=== PATIENT | female | born 1985 | race Caucasian/White ===

== ENCOUNTER → 2017-10-05 | Outpatient (CLI) | payer OTHER | END | disposition home or self-care (01) | LOC: C.PAPS 11:58 | PROVIDERS: ATTEND Physician Assistant | DX: Z12.4 Encounter for screening for malignant neoplasm of cervix (principal) ==

== ENCOUNTER 2019-04-19 07:42 | Inpatient (IN) ==
[2019-04-19] MEDS ORDERED: OXYTOCIN 30 UNITS/500 ML BAG IV PRN (08:06)
--- NOTE | 2019-04-19 08:29 | History & Physical Report ---
Date of Service April 19, 2019 Assessment & Plan (1) Supervision of elderly primigravida: Supervision of Elderly Primigravida -B+, GBS - -Good bulb removed this AM -Pitocin start 1, increase by 2 milliunits/min every 30 min until max 20milliunits/min -Pain Plan epidural -Plan for vaginal delivery History of Present Illness Chief Complaint: IOL Primary Care Provider: ANDREA Foster Patient is a 34 . Dating parameters 41W 2D by LMP TONY 04/10/19. Presenting for IOL after good bulb placement the night prior. has been complicated by hypothyroidism which patient takes levothyroxine for. She has been attending OB appointments appropriately. She notes movement, but denies any contractions, fluid loss, vaginal blood loss. States she feels well. Labs -Blood type B+ -Antibody screen negative -Hg - 12.3 -Hct - 37.1 -Wbc 11.06 -Plt 222 -Rubella immune -VDRL/RPR - negative -Gonorrhea negative -Chlamydia negative -HIV negative -HbSAg negative -GBS negative -Glucose tolerance x 2 passed Allergies Allergy/AdvReac Type Severity Reaction Status Date / Time No Known Allergies Allergy Verified 04/18/19 19:37 Home Medications Home Medications Medication Instructions Recorded Confirmed Type PNV cmb#95-ferrous fumarate-FA 1 tab PO DAILY 10/25/18 04/19/19 History [] calcium carbonate [Calcium 600] 600 mg PO DAILY 10/25/18 04/19/19 History omega 1-wfw-amk-fish oil [Fish Oil] 1 cap PO DAILY 10/25/18 04/19/19 History levothyroxine 137 mcg tablet 137 mcg PO DAILY 01/08/19 04/19/19 History Patient History Medical History Elevated alkaline phosphatase level (Resolved) Graves disease (Resolved) Graves' disease (Resolved) Hyperthyroidism (Resolved) History of migraine headaches History of varicella Surgical History History of thyroidectomy History of elective (Resolved) History of elective surgically induced S/P wisdom tooth extraction Family History Mother Depression Dyslipidemia Sister Leukemia Seizures Other Colorectal cancer Social History Preferred Language: Icelandic Communication Ability: Effective Rpg Programmer Required: No Beliefs That Will Affect Care: None marital status: Current Living Situation: Spouse current occupational status: employed Other Information That Helps Us Care for You: No Feels Safe at Home: Yes Safety Concerns: Feels Safe At This Time Smoking Status: Never smoker Do You Dip or Chew Tobacco: No ; Second Hand Exposure: No ; Tobacco Cessation Education Requested by Patient: No Hx Alcohol Use: No Hx Substance Use: No Review of Systems no fever, no chills, no body aches and no fatigue no photophobia and no worsening vision no tinnitus and no dizziness no cough, no dyspnea, no dyspnea on exertion and no pain on inspiration + edema; no chest pain, no chest pain with activity, no radiating jaw, neck or arm pain, no dyspnea, no dyspnea on exertion and no palpitations no abdominal pain, no nausea and no vomiting no dysuria and no hematuria + back pain no rash Physical Exam Constitutional: well developed and well nourished; no acute distress Eyes: normal visual wells by confrontation ENMT: external ear and nose normal, oropharynx normal Neck: normal visual inspection scar 2/2 thyroidectomy Respiratory: normal respiratory effort, lungs clear to auscultation Cardiovascular: Rate/Rhythm: regular rate and regular rhythm Heart Sounds: normal S1 and normal S2; no murmur Extremities: + edema (+1) Gastrointestinal (Abdomen): Inspection/Auscultation: normal bowel sounds Percussion/Palpation: abdomen soft Gravid uterus Fundal height term Positive FHT's 154 Vtx No palpable contractions Musculoskeletal: no cyanosis or clubbing, extremities motor strength 5/5 Skin: no rashes, warm and dry Neurologic: patellar DTR's 2+ bilat, sensation intact Psychiatric: A+Ox3, euthymic affect Genitourinary: OB Exam Abdomen: + heart tones (154) and + vertex Manu al OB Exam: + cervical dilation 3 cm, + cervical effacement 50% and + station -2 OB Exam Monitor Tracing: + external FHT monitor used Results & Data Vital Signs (Past 12 Hours) Vital Signs Temp Pulse Resp BP 04/19/19 07:52 36.8 C 100 H 20 137/81 Laboratory Results Abnormal lab results 04/19/19 Range/Units 08:26 WBC 11.06 H (4.8-10.8) K/uL Medications Administered Current Inpatient Medications Lactated Ringer's (Lr) 1,000 mls @ 125 mls/hr IV .Q8H PRN; Protocol PRN Reason: L&D Protocol Stop: 04/21/19 08:05 Last Admin: 04/19/19 08:39 Dose: 125 mls/hr Documented by: Oxytocin (Pitocin) 30 units in 500 mls @ 1 mls/hr IV .Q24H PRN; Protocol PRN Reason: Labor Induction/Augmentation Stop: 04/21/19 08:05 Last Admin: 04/19/19 08:39 Dose: 0.06 units/hr, 1 mls/hr Documented by: Oxytocin (Pitocin) 30 units in 500 mls @ 333.333 mls/hr IV .Q1H30M PRN; Protocol PRN Reason: Bleeding Control Stop: 05/19/19 08:05 Monitoring External Monitor FHR 154 Tocodynamometer 32 Supervising Physician Co-Signing Physician Notes Resident Physician Supervision Note: I interviewed and examined the patient. Discussed with Dr. Magallanes and agree with findings and plan as documented in the note. Any exceptions or clarifications are listed here: Patient is a wtih iup at 41 3/7 weeks who presents for postdates induction. Had good last night. Good removed with a gentle tug on the good. cx--3/50/-2, toco--rare, fetus category one. Plan pitocin induction. arom as indicated. epidural on demand. anticipate . Documented By: Katelyn Neff MD, [facility] [place] Resident Activity Tracking Resident Involvement: Resident Care Provided Care Provided: OB Delivery
[2019-04-19 08:36] LABS: Hematocrit (blood only) 37.1 % (37-47); Hemoglobin 12.3 g/dL (12.0-16.0); Mean Corpuscular Hemoglobin 28.9 pg (25-34); Mean Corpuscular Volume 87.3 fL (80-100); Mean Platelet Volume 10.1 fL (7.4-10.4); Platelet Count 222 K/uL (130-400); RDW Coefficient of Variation 14.5 % (11.5-14.5); RDW Standard Deviation 45.8 fL (36.4-46.3); Red Blood Count 4.25 M/uL (4.2-5.4); White Blood Count 11.06 K/uL (4.8-10.8)
[2019-04-19] MEDS: LACTATED RINGER'S 1,000 ML IV PRN ×3 (08:39→18:00)
[2019-04-19] MEDS: OXYTOCIN 30 UNITS/500 ML BAG IV PRN (08:39)
[2019-04-19 08:49] LABS: Mean Corpuscular Hgb Conc 33.2 g/dL (32-36)
[2019-04-19] MEDS ORDERED: BUPIVACAINE 0.25% 30 ML VIAL ONE (12:27)
[2019-04-19] MEDS ORDERED: fentaNYL citrate 100 MCG/2 ML VIAL ONE (12:27)
[2019-04-19] MEDS ORDERED: ePHEDrine sulfate 50 MG/ML AMP ONE (12:27)
[2019-04-19] MEDS ORDERED: fentaNYL 2MCG/ML ROPIV 1.25MG/ML 100 ML BAG EPI ONE (12:28)
[2019-04-19] MEDS ORDERED: NALOXONE HCL 1 MG in SODIUM CHLORIDE 0.9% 1000ML 1,000 ML IV PRN (12:47)
[2019-04-19] MEDS ORDERED: ePHEDrine sulfate 50 MG/ML AMP IV PRN (12:47)
[2019-04-19] MEDS ORDERED: NALBUPHINE HCL INJ 10 MG/ML AMP IV PRN (12:47)
[2019-04-19] MEDS ORDERED: DiphenhydrAMINE HCL 50 MG/ML VIAL IV PRN (12:47)
[2019-04-19] MEDS ORDERED: ONDANSETRON INJ 2 MG/ML 2 ML VIAL IV PRN (12:47)
[2019-04-19] MEDS ORDERED: NALOXONE HCL 0.4 MG/1 ML VIAL/CARP IV PRN (12:47)
--- NOTE | 2019-04-19 12:49 | Anesthesiology Consultation ---
Date of Service April 19, 2019 Assessment & Plan (1) Encounter for pre-operative examination: Chart Review Chart Review: Patient NOT seen in Pre Admission Testing and Acceptable Risk for Labor Epidural Consults Requested none History Height/Weight Height: 5 ft 5 in Weight: 96.162 kg Allergies Allergy/AdvReac Type Severity Reaction Status Date / Time No Known Allergies Allergy Verified 04/18/19 19:37 Medications Home Medications Medication Instructions Recorded Confirmed Last Taken PNV cmb#95-ferrous fumarate-FA 1 tab PO DAILY 10/25/18 04/19/19 04/18/19 17:30 [] calcium carbonate [Calcium 600] 600 mg PO DAILY 10/25/18 04/19/19 04/18/19 17:30 omega 6-vsp-ttr-fish oil [Fish Oil] 1 cap PO DAILY 10/25/18 04/19/19 04/18/19 17:30 levothyroxine 137 mcg tablet 137 mcg PO DAILY 01/08/19 04/19/19 04/19/19 05:45 Active Medications Generic Name Dose Route Start Last Admin Trade Name Freq PRN Reason Stop Dose Admin Lactated Ringer's 1,000 mls @ 125 mls/hr 04/19/19 08:06 04/19/19 12:52 Lr IV 04/21/19 08:05 999 mls/hr .Q8H PRN Administration L&D Protocol Protocol Oxytocin 30 units in 500 mls @ 9 mls/hr 04/19/19 08:06 04/19/19 11:00 Pitocin IV 04/21/19 08:05 0.54 units/hr .Q24H PRN 9 mls/hr Labor Induction/Augmentation Titration Protocol 0.54 UNITS/HR Past Medical History Medical History Elevated alkaline phosphatase level (Resolved) Graves disease (Resolved) Graves' disease (Resolved) Hyperthyroidism (Resolved) History of migraine headaches History of varicella Exercise / Class Metabolic Activity II 4-5 Yardwork/Stairs/Walk up hill Past Family History Family History Mother Depression Dyslipidemia Sister Leukemia Seizures Other Colorectal cancer Past Surgical History Surgical History History of thyroidectomy History of elective (Resolved) History of elective surgically induced S/P wisdom tooth extraction Past Anesthesia History No Hx of Anesthesia Complications and No Family Hx of Anesthesia Complications History of PONV No Hx of PONV and No Hx of Motion Sickness Social History Smoking Status: Never smoker Do You Dip or Chew Tobacco: No Hx Alcohol Use: No Hx Substance Use: No substance use type: does not use Physical Exam Vital Signs Last Vital Signs Temp 37.1 C 04/19/19 10:56 Pulse 92 H 04/19/19 12:47 Resp 20 04/19/19 12:35 BP 120/80 04/19/19 12:35 Pulse Ox 100 04/19/19 12:47 Testing Laboratory Results 04/19/19 08:26
--- NOTE | 2019-04-19 14:13 | Obstetrical Progress Note ---
Date of Service April 19, 2019 Assessment & Plan (1) Supervision of elderly primigravida: (2) with 41 completed weeks gestation: continue current management. fetus category one. anticipate . Subjective comfortable after epidural Physical Exam Constitutional: WD/WN, vitals as above Psychiatric: A+Ox3, euthymic affect Genitourinary: cx--3-4/50/-2 arom--copious clear toco--q2-3min, pit at 11 efm--130s with mod variability, accels to 150s, no decels Results & Data Vital Signs (Past 12 Hours) Vital Signs Temp Pulse Resp BP Pulse Ox 04/19/19 14:07 93 H 98 04/19/19 14:02 82 97 04/19/19 13:59 83 135/76 04/19/19 13:57 90 97 04/19/19 13:52 90 97 04/19/19 13:47 87 97 04/19/19 13:44 91 H 131/84 04/19/19 13:42 93 H 97 04/19/19 13:39 88 129/78 04/19/19 13:37 79 96 04/19/19 13:33 83 134/80 04/19/19 13:32 85 97 04/19/19 13:28 90 145/77 H 04/19/19 13:27 93 H 97 04/19/19 13:25 37.2 C 20 04/19/19 13:22 89 130/71 98 04/19/19 13:20 85 18 134/76 04/19/19 13:18 85 135/72 04/19/19 13:17 91 H 99 04/19/19 13:16 85 131/71 04/19/19 13:14 91 H 137/70 04/19/19 13:12 88 134/70 98 04/19/19 13:10 83 20 140/70 04/19/19 13:09 94 H 147/70 H 04/19/19 13:07 110 H 100 04/19/19 13:02 103 H 100 04/19/19 12:57 86 100 04/19/19 12:52 91 H 99 04/19/19 12:47 92 H 100 04/19/19 12:42 95 H 100 04/19/19 12:37 91 H 100 04/19/19 12:35 85 20 120/80 04/19/19 12:32 92 H 99 04/19/19 12:09 93 H 20 138/78 04/19/19 10:56 37.1 C 86 20 135/77 04/19/19 10:02 85 126/82 04/19/19 09:18 95 H 131/75 04/19/19 07:52 36.8 C 100 H 20 137/81 PG Care Time/CCT Total # of Minutes Spent Total Time Spent with Patient: Total time spent is greater than 50% in coordination of care (as documented) at patient's floor/unit and/or counseling patient:
--- NOTE | 2019-04-19 16:40 | Obstetrical Progress Note ---
Date of Service April 19, 2019 Assessment & Plan (1) with 41 completed weeks gestation: iupc placed. aiming for >200mvus. fetus category one. continue pitocin. Subjective comfortable Physical Exam Constitutional: WD/WN, vitals as above Psychiatric: A+Ox3, euthymic affect Genitourinary: cx--/-2 iupc placed toco--q2-4min, pit at 13 efm--130s with mod variaiblity, +accels, no decels, +scalp stim Results & Data Vital Signs (Past 12 Hours) Vital Signs Temp Pulse Resp BP Pulse Ox 04/19/19 16:32 99 H 98 04/19/19 16:29 89 134/82 04/19/19 16:27 88 97 04/19/19 16:22 87 98 04/19/19 16:17 92 H 99 04/19/19 16:14 86 133/80 04/19/19 16:12 93 H 99 04/19/19 16:07 95 H 99 04/19/19 16:02 91 H 97 04/19/19 15:59 101 H 134/84 04/19/19 15:57 90 98 04/19/19 15:52 96 H 98 04/19/19 15:47 90 98 04/19/19 15:44 97 H 127/76 04/19/19 15:42 90 98 04/19/19 15:37 102 H 99 04/19/19 15:32 95 H 97 04/19/19 15:29 93 H 123/77 04/19/19 15:27 91 H 97 04/19/19 15:22 100 H 99 04/19/19 15:17 102 H 97 04/19/19 15:15 83 133/72 04/19/19 15:12 91 H 97 04/19/19 15:07 102 H 96 04/19/19 15:02 97 H 97 04/19/19 15:00 37.3 C 84 18 121/73 04/19/19 14:57 99 H 97 04/19/19 14:52 98 H 95 04/19/19 14:47 90 96 04/19/19 14:44 103 H 117/67 04/19/19 14:42 85 95 04/19/19 14:37 89 95 04/19/19 14:32 80 96 04/19/19 14:30 20 04/19/19 14:29 82 131/73 04/19/19 14:27 86 96 04/19/19 14:22 79 96 04/19/19 14:17 83 97 04/19/19 14:15 82 123/70 04/19/19 14:12 91 H 98 04/19/19 14:07 93 H 98 04/19/19 14:02 82 97 04/19/19 14:00 20 04/19/19 13:59 83 135/76 04/19/19 13:57 90 97 04/19/19 13:52 90 97 04/19/19 13:47 87 97 04/19/19 13:44 91 H 131/84 04/19/19 13:42 93 H 97 04/19/19 13:40 20 04/19/19 13:39 88 129/78 04/19/19 13:37 79 96 04/19/19 13:33 83 134/80 04/19/19 13:32 85 97 04/19/19 13:28 90 145/77 H 04/19/19 13:27 93 H 97 04/19/19 13:25 37.2 C 20 04/19/19 13:22 89 130/71 98 04/19/19 13:20 85 18 134/76 04/19/19 13:18 85 135/72 04/19/19 13:17 91 H 99 04/19/19 13:16 85 131/71 04/19/19 13:14 91 H 137/70 04/19/19 13:12 88 134/70 98 04/19/19 13:10 83 20 140/70 04/19/19 13:09 94 H 147/70 H 04/19/19 13:07 110 H 100 04/19/19 13:02 103 H 100 04/19/19 12:57 86 100 04/19/19 12:52 91 H 99 04/19/19 12:47 92 H 100 04/19/19 12:42 95 H 100 04/19/19 12:37 91 H 100 04/19/19 12:35 85 20 120/80 04/19/19 12:32 92 H 99 04/19/19 12:09 93 H 20 138/78 04/19/19 10:56 37.1 C 86 20 135/77 04/19/19 10:02 85 126/82 04/19/19 09:18 95 H 131/75 04/19/19 07:52 36.8 C 100 H 20 137/81 PG Care Time/CCT Total # of Minutes Spent Total Time Spent with Patient: Total time spent is greater than 50% in coordination of care (as documented) at patient's floor/unit and/or counseling patient:
[2019-04-19] MEDS ORDERED: Nursing to Pharmacy Communication ONE (19:34)
[2019-04-19] MEDS ORDERED: SODIUM CHLORIDE 0.65% NA SOLN 45 ML (OCEAN) PRN (19:35)
--- NOTE | 2019-04-19 20:28 | Obstetrical Progress Note ---
Date of Service April 19, 2019 Assessment & Plan (1) with 41 completed weeks gestation: fetus category one. approaching adequacy. Will continue pitocin and increase as needed to keep mvus >200. Subjective comfortable Physical Exam Constitutional: WD/WN, vitals as above Psychiatric: A+Ox3, euthymic affect Genitourinary: cx--4-5/75/-2 toco--q2-3min, pit at 19, just got to greater than 200 mvus efm--130s with min to mod variability, spon accels, no decels Results & Data Vital Signs (Past 12 Hours) Vital Signs Temp Pulse Resp BP Pulse Ox 04/19/19 20:22 103 H 97 04/19/19 20:17 96 H 95 04/19/19 20:15 88 132/78 04/19/19 20:12 94 H 99 04/19/19 20:07 93 H 96 04/19/19 20:02 91 H 97 04/19/19 20:00 97 H 18 143/82 H 04/19/19 19:57 97 H 96 04/19/19 19:52 89 96 04/19/19 19:47 92 H 98 04/19/19 19:45 90 135/78 04/19/19 19:42 90 95 04/19/19 19:37 83 95 04/19/19 19:32 98 H 94 04/19/19 19:30 90 20 134/78 04/19/19 19:27 93 H 97 04/19/19 19:22 91 H 96 04/19/19 19:17 102 H 96 04/19/19 19:14 37.1 C 85 20 132/80 04/19/19 19:12 90 97 04/19/19 19:07 90 97 04/19/19 19:02 98 H 96 04/19/19 18:59 90 133/77 04/19/19 18:57 91 H 96 04/19/19 18:52 105 H 96 04/19/19 18:47 97 H 96 04/19/19 18:45 94 H 133/81 04/19/19 18:42 91 H 96 04/19/19 18:37 93 H 97 04/19/19 18:32 97 H 97 04/19/19 18:29 90 129/86 04/19/19 18:27 92 H 96 04/19/19 18:22 93 H 98 04/19/19 18:17 96 H 96 04/19/19 18:14 90 133/83 04/19/19 18:12 93 H 96 04/19/19 18:07 97 H 98 04/19/19 18:02 94 H 97 04/19/19 17:59 93 H 20 142/81 H 04/19/19 17:57 91 H 97 04/19/19 17:52 98 H 96 04/19/19 17:47 91 H 96 04/19/19 17:45 87 124/80 04/19/19 17:42 93 H 96 04/19/19 17:37 92 H 97 04/19/19 17:32 90 97 04/19/19 17:29 88 144/80 H 04/19/19 17:27 97 H 97 04/19/19 17:22 98 H 97 04/19/19 17:17 91 H 97 04/19/19 17:15 98 H 129/84 04/19/19 17:12 94 H 97 04/19/19 17:07 103 H 97 04/19/19 17:02 96 H 97 04/19/19 17:00 37.0 C 87 16 127/83 04/19/19 16:57 87 97 04/19/19 16:52 93 H 98 04/19/19 16:47 89 98 04/19/19 16:44 85 133/82 04/19/19 16:42 92 H 98 04/19/19 16:37 97 H 98 04/19/19 16:32 99 H 98 04/19/19 16:29 89 134/82 04/19/19 16:27 88 97 04/19/19 16:22 87 98 04/19/19 16:17 92 H 99 04/19/19 16:14 86 133/80 04/19/19 16:12 93 H 99 04/19/19 16:07 95 H 99 04/19/19 16:02 91 H 97 04/19/19 16:00 16 04/19/19 15:59 101 H 134/84 04/19/19 15:57 90 98 04/19/19 15:52 96 H 98 04/19/19 15:47 90 98 04/19/19 15:44 97 H 127/76 04/19/19 15:42 90 98 04/19/19 15:37 102 H 99 04/19/19 15:32 95 H 97 04/19/19 15:29 93 H 123/77 04/19/19 15:27 91 H 97 04/19/19 15:22 100 H 99 04/19/19 15:17 102 H 97 04/19/19 15:15 83 133/72 04/19/19 15:12 91 H 97 04/19/19 15:07 102 H 96 04/19/19 15:02 97 H 97 04/19/19 15:00 37.3 C 84 18 121/73 04/19/19 14:57 99 H 97 04/19/19 14:52 98 H 95 04/19/19 14:47 90 96 04/19/19 14:44 103 H 117/67 04/19/19 14:42 85 95 04/19/19 14:37 89 95 04/19/19 14:32 80 96 04/19/19 14:30 20 04/19/19 14:29 82 131/73 04/19/19 14:27 86 96 04/19/19 14:22 79 96 04/19/19 14:17 83 97 04/19/19 14:15 82 123/70 04/19/19 14:12 91 H 98 04/19/19 14:07 93 H 98 04/19/19 14:02 82 97 04/19/19 14:00 20 04/19/19 13:59 83 135/76 04/19/19 13:57 90 97 04/19/19 13:52 90 97 04/19/19 13:47 87 97 04/19/19 13:44 91 H 131/84 04/19/19 13:42 93 H 97 04/19/19 13:40 20 04/19/19 13:39 88 129/78 04/19/19 13:37 79 96 04/19/19 13:33 83 134/80 04/19/19 13:32 85 97 04/19/19 13:28 90 145/77 H 04/19/19 13:27 93 H 97 04/19/19 13:25 37.2 C 20 04/19/19 13:22 89 130/71 98 04/19/19 13:20 85 18 134/76 04/19/19 13:18 85 135/72 04/19/19 13:17 91 H 99 04/19/19 13:16 85 131/71 04/19/19 13:14 91 H 137/70 04/19/19 13:12 88 134/70 98 04/19/19 13:10 83 20 140/70 04/19/19 13:09 94 H 147/70 H 04/19/19 13:07 110 H 100 04/19/19 13:02 103 H 100 04/19/19 12:57 86 100 04/19/19 12:52 91 H 99 04/19/19 12:47 92 H 100 04/19/19 12:42 95 H 100 04/19/19 12:37 91 H 100 04/19/19 12:35 85 20 120/80 04/19/19 12:32 92 H 99 04/19/19 12:09 93 H 20 138/78 04/19/19 10:56 37.1 C 86 20 135/77 04/19/19 10:02 85 126/82 04/19/19 09:18 95 H 131/75 PG Care Time/CCT Total # of Minutes Spent Total Time Spent with Patient: Total time spent is greater than 50% in coordination of care (as documented) at patient's floor/unit and/or counseling patient:
[2019-04-19] MEDS: fentaNYL 2MCG/ML ROPIV 1.25MG/ML 100 ML BAG EPI PRN (21:21)
--- NOTE | 2019-04-19 23:58 | Obstetrical Progress Note ---
Date of Service April 19, 2019 Assessment & Plan (1) with 41 completed weeks gestation: Starting to get concerned that we are not making any progress. Contractions for the most part are pretty adequate. Plan to half pit and go up again and see how we go. did discuss the possibility of c/s for ftp. However, I do not feel we have given her every opportunity to change. ACOG recommends that we give the patient at minimum 14 hours with arom and maximum pitocin before calling ftp, given reassuring fhr tracing which we have. Expressed this to patient and her who agree with the plan Subjective comfortable Physical Exam Constitutional: WD/WN, vitals as above Psychiatric: A+Ox3, euthymic affect Genitourinary: cx--/75/-2 toco--q2-3min, pit at 27, MVUs mostly adequate efm--150s with mod variability, small accels, no decels Results & Data Vital Signs (Past 12 Hours) Vital Signs Temp Pulse Resp BP Pulse Ox 04/19/19 23:47 105 H 99 04/19/19 23:45 100 H 131/71 04/19/19 23:42 104 H 98 04/19/19 23:37 88 96 04/19/19 23:32 86 96 04/19/19 23:29 90 120/71 04/19/19 23:27 86 95 04/19/19 23:22 92 H 95 04/19/19 23:17 89 96 04/19/19 23:15 87 16 127/77 04/19/19 23:12 95 H 96 04/19/19 23:08 37.5 C 04/19/19 23:07 102 H 95 04/19/19 23:02 92 H 95 04/19/19 23:00 18 04/19/19 22:59 93 H 124/68 04/19/19 22:57 93 H 95 04/19/19 22:52 90 95 04/19/19 22:47 90 95 04/19/19 22:44 90 123/72 04/19/19 22:42 89 95 04/19/19 22:37 92 H 95 04/19/19 22:32 94 H 96 04/19/19 22:30 18 04/19/19 22:29 95 H 125/72 04/19/19 22:27 99 H 97 04/19/19 22:22 96 H 97 04/19/19 22:17 105 H 97 04/19/19 22:14 102 H 124/70 04/19/19 22:12 98 H 97 04/19/19 22:07 85 96 04/19/19 22:02 86 95 04/19/19 22:00 16 04/19/19 21:59 87 132/72 04/19/19 21:57 89 95 04/19/19 21:52 93 H 95 04/19/19 21:47 86 97 04/19/19 21:45 89 129/73 04/19/19 21:42 94 H 98 04/19/19 21:37 94 H 97 04/19/19 21:32 98 H 97 04/19/19 21:30 36.9 C 18 04/19/19 21:29 93 H 124/75 04/19/19 21:27 96 H 97 04/19/19 21:22 88 97 04/19/19 21:17 89 97 04/19/19 21:15 90 130/77 04/19/19 21:12 85 96 04/19/19 21:07 87 95 04/19/19 21:02 86 95 04/19/19 21:00 16 04/19/19 20:59 85 125/77 04/19/19 20:57 87 96 04/19/19 20:52 89 96 04/19/19 20:47 101 H 97 04/19/19 20:45 88 128/79 04/19/19 20:42 93 H 94 04/19/19 20:37 88 95 04/19/19 20:32 87 95 04/19/19 20:30 18 04/19/19 20:29 84 136/81 04/19/19 20:27 94 H 97 04/19/19 20:22 103 H 97 04/19/19 20:17 96 H 95 04/19/19 20:15 88 132/78 04/19/19 20:12 94 H 99 04/19/19 20:07 93 H 96 04/19/19 20:02 91 H 97 04/19/19 20:00 97 H 18 143/82 H 04/19/19 19:57 97 H 96 04/19/19 19:52 89 96 04/19/19 19:47 92 H 98 04/19/19 19:45 90 135/78 04/19/19 19:42 90 95 04/19/19 19:37 83 95 04/19/19 19:32 98 H 94 04/19/19 19:30 90 20 134/78 04/19/19 19:27 93 H 97 04/19/19 19:22 91 H 96 04/19/19 19:17 102 H 96 04/19/19 19:14 37.1 C 85 20 132/80 04/19/19 19:12 90 97 04/19/19 19:07 90 97 04/19/19 19:02 98 H 96 04/19/19 18:59 90 133/77 04/19/19 18:57 91 H 96 04/19/19 18:52 105 H 96 04/19/19 18:47 97 H 96 04/19/19 18:45 94 H 133/81 04/19/19 18:42 91 H 96 04/19/19 18:37 93 H 97 04/19/19 18:32 97 H 97 04/19/19 18:29 90 129/86 04/19/19 18:27 92 H 96 04/19/19 18:22 93 H 98 04/19/19 18:17 96 H 96 04/19/19 18:14 90 133/83 04/19/19 18:12 93 H 96 04/19/19 18:07 97 H 98 04/19/19 18:02 94 H 97 04/19/19 17:59 93 H 20 142/81 H 04/19/19 17:57 91 H 97 04/19/19 17:52 98 H 96 04/19/19 17:47 91 H 96 04/19/19 17:45 87 124/80 04/19/19 17:42 93 H 96 04/19/19 17:37 92 H 97 04/19/19 17:32 90 97 04/19/19 17:29 88 144/80 H 04/19/19 17:27 97 H 97 04/19/19 17:22 98 H 97 04/19/19 17:17 91 H 97 04/19/19 17:15 98 H 129/84 04/19/19 17:12 94 H 97 04/19/19 17:07 103 H 97 04/19/19 17:02 96 H 97 04/19/19 17:00 37.0 C 87 16 127/83 04/19/19 16:57 87 97 04/19/19 16:52 93 H 98 04/19/19 16:47 89 98 04/19/19 16:44 85 133/82 04/19/19 16:42 92 H 98 04/19/19 16:37 97 H 98 04/19/19 16:32 99 H 98 04/19/19 16:29 89 134/82 04/19/19 16:27 88 97 04/19/19 16:22 87 98 04/19/19 16:17 92 H 99 04/19/19 16:14 86 133/80 04/19/19 16:12 93 H 99 04/19/19 16:07 95 H 99 04/19/19 16:02 91 H 97 04/19/19 16:00 16 04/19/19 15:59 101 H 134/84 04/19/19 15:57 90 98 04/19/19 15:52 96 H 98 04/19/19 15:47 90 98 04/19/19 15:44 97 H 127/76 04/19/19 15:42 90 98 04/19/19 15:37 102 H 99 04/19/19 15:32 95 H 97 04/19/19 15:29 93 H 123/77 04/19/19 15:27 91 H 97 04/19/19 15:22 100 H 99 04/19/19 15:17 102 H 97 04/19/19 15:15 83 133/72 04/19/19 15:12 91 H 97 04/19/19 15:07 102 H 96 04/19/19 15:02 97 H 97 04/19/19 15:00 37.3 C 84 18 121/73 04/19/19 14:57 99 H 97 04/19/19 14:52 98 H 95 04/19/19 14:47 90 96 04/19/19 14:44 103 H 117/67 04/19/19 14:42 85 95 04/19/19 14:37 89 95 04/19/19 14:32 80 96 04/19/19 14:30 20 04/19/19 14:29 82 131/73 04/19/19 14:27 86 96 04/19/19 14:22 79 96 04/19/19 14:17 83 97 04/19/19 14:15 82 123/70 04/19/19 14:12 91 H 98 04/19/19 14:07 93 H 98 04/19/19 14:02 82 97 04/19/19 14:00 20 04/19/19 13:59 83 135/76 04/19/19 13:57 90 97 04/19/19 13:52 90 97 04/19/19 13:47 87 97 04/19/19 13:44 91 H 131/84 04/19/19 13:42 93 H 97 04/19/19 13:40 20 04/19/19 13:39 88 129/78 04/19/19 13:37 79 96 04/19/19 13:33 83 134/80 04/19/19 13:32 85 97 04/19/19 13:28 90 145/77 H 04/19/19 13:27 93 H 97 04/19/19 13:25 37.2 C 20 04/19/19 13:22 89 130/71 98 04/19/19 13:20 85 18 134/76 04/19/19 13:18 85 135/72 04/19/19 13:17 91 H 99 04/19/19 13:16 85 131/71 04/19/19 13:14 91 H 137/70 04/19/19 13:12 88 134/70 98 04/19/19 13:10 83 20 140/70 04/19/19 13:09 94 H 147/70 H 04/19/19 13:07 110 H 100 04/19/19 13:02 103 H 100 04/19/19 12:57 86 100 04/19/19 12:52 91 H 99 04/19/19 12:47 92 H 100 04/19/19 12:42 95 H 100 04/19/19 12:37 91 H 100 04/19/19 12:35 85 20 120/80 04/19/19 12:32 92 H 99 04/19/19 12:09 93 H 20 138/78 PG Care Time/CCT Total # of Minutes Spent Total Time Spent with Patient: Total time spent is greater than 50% in coordination of care (as documented) at patient's floor/unit and/or counseling patient:
[2019-04-20] MEDS: LACTATED RINGER'S 1,000 ML IV PRN ×3 (01:56→16:13)
[2019-04-20] MEDS: fentaNYL 2MCG/ML ROPIV 1.25MG/ML 100 ML BAG EPI PRN ×3 (03:08→08:20)
[2019-04-20] MEDS ORDERED: ACETAMINOPHEN 325 MG TAB PO STA (03:44)
[2019-04-20] MEDS ORDERED: ACETAMINOPHEN 325 MG TAB ONE (03:48)
--- NOTE | 2019-04-20 03:49 | Obstetrical Progress Note ---
Date of Service April 20, 2019 Assessment & Plan (1) with 41 completed weeks gestation: Dysfunctional labor pattern, not responsive to increasing doses of pitocin. cannot now get patient into adequate contraction pattern at current time. I suspect because not going to achieve vaginal delivery. Had been adequate at about midnight so 14 hours would be 2 pm. Again discussed this situation. Now has low grade temp which we will treat with tylenol. Patient would like to labor some more and see if max pit will make a difference. If still febrile in one hour, will start antibiotics. Reevaluate at 7am. Subjective comfortable Physical Exam Constitutional: WD/WN, vitals as above Psychiatric: A+Ox3, euthymic affect Genitourinary: cx--unchanged toco--q2-3min, pit at 26, not adequate mvus efm--150s with mod variability, accels present, no decels Results & Data Vital Signs (Past 12 Hours) Vital Signs Temp Pulse Resp BP Pulse Ox 04/20/19 03:42 106 H 98 04/20/19 03:37 112 H 97 04/20/19 03:32 96 H 95 04/20/19 03:30 94 H 125/70 04/20/19 03:27 93 H 95 04/20/19 03:22 91 H 96 04/20/19 03:17 109 H 97 04/20/19 03:14 105 H 126/74 04/20/19 03:12 97 H 97 04/20/19 03:07 98 H 97 04/20/19 03:02 93 H 96 04/20/19 02:59 96 H 125/73 04/20/19 02:57 94 H 96 04/20/19 02:52 94 H 96 04/20/19 02:47 94 H 97 04/20/19 02:45 93 H 131/77 04/20/19 02:42 94 H 98 04/20/19 02:37 97 H 99 04/20/19 02:32 98 H 99 04/20/19 02:30 18 04/20/19 02:29 95 H 141/77 H 04/20/19 02:27 101 H 100 04/20/19 02:22 107 H 100 04/20/19 02:17 95 H 100 04/20/19 02:14 97 H 134/81 04/20/19 02:12 93 H 100 04/20/19 02:07 100 H 98 04/20/19 02:02 102 H 98 04/20/19 02:00 18 04/20/19 01:59 96 H 130/74 04/20/19 01:57 116 H 97 04/20/19 01:52 99 H 99 04/20/19 01:47 100 H 99 04/20/19 01:45 16 04/20/19 01:44 95 H 124/77 04/20/19 01:42 90 96 04/20/19 01:37 90 96 04/20/19 01:32 95 H 95 04/20/19 01:29 94 H 115/75 04/20/19 01:27 91 H 97 04/20/19 01:22 93 H 95 04/20/19 01:17 93 H 96 04/20/19 01:15 37.3 C 16 04/20/19 01:14 101 H 115/70 04/20/19 01:12 92 H 94 04/20/19 01:07 89 94 04/20/19 01:02 91 H 95 04/20/19 00:59 86 115/70 04/20/19 00:57 87 95 04/20/19 00:52 95 H 97 04/20/19 00:47 92 H 94 04/20/19 00:45 16 04/20/19 00:44 93 H 99/55 L 04/20/19 00:42 94 H 94 04/20/19 00:37 94 H 94 04/20/19 00:32 97 H 96 04/20/19 00:30 100 H 105/61 04/20/19 00:27 93 H 97 04/20/19 00:22 101 H 109/58 L 96 04/20/19 00:17 100 H 96 04/20/19 00:15 18 04/20/19 00:12 100 H 97 04/20/19 00:07 100 H 97 04/20/19 00:02 105 H 98 04/20/19 00:00 101 H 116/62 04/19/19 23:57 104 H 99 04/19/19 23:52 108 H 97 04/19/19 23:47 105 H 99 04/19/19 23:45 100 H 20 131/71 04/19/19 23:42 104 H 98 04/19/19 23:37 88 96 04/19/19 23:32 86 96 04/19/19 23:29 90 120/71 04/19/19 23:27 86 95 04/19/19 23:22 92 H 95 04/19/19 23:17 89 96 04/19/19 23:15 87 16 127/77 04/19/19 23:12 95 H 96 04/19/19 23:08 37.5 C 04/19/19 23:07 102 H 95 04/19/19 23:02 92 H 95 04/19/19 23:00 18 04/19/19 22:59 93 H 124/68 04/19/19 22:57 93 H 95 04/19/19 22:52 90 95 04/19/19 22:47 90 95 04/19/19 22:44 90 123/72 04/19/19 22:42 89 95 04/19/19 22:37 92 H 95 04/19/19 22:32 94 H 96 04/19/19 22:30 18 04/19/19 22:29 95 H 125/72 04/19/19 22:27 99 H 97 04/19/19 22:22 96 H 97 04/19/19 22:17 105 H 97 04/19/19 22:14 102 H 124/70 04/19/19 22:12 98 H 97 04/19/19 22:07 85 96 04/19/19 22:02 86 95 04/19/19 22:00 16 04/19/19 21:59 87 132/72 04/19/19 21:57 89 95 04/19/19 21:52 93 H 95 04/19/19 21:47 86 97 04/19/19 21:45 89 129/73 04/19/19 21:42 94 H 98 04/19/19 21:37 94 H 97 04/19/19 21:32 98 H 97 04/19/19 21:30 36.9 C 18 04/19/19 21:29 93 H 124/75 04/19/19 21:27 96 H 97 04/19/19 21:22 88 97 04/19/19 21:17 89 97 04/19/19 21:15 90 130/77 04/19/19 21:12 85 96 04/19/19 21:07 87 95 04/19/19 21:02 86 95 04/19/19 21:00 16 04/19/19 20:59 85 125/77 04/19/19 20:57 87 96 04/19/19 20:52 89 96 04/19/19 20:47 101 H 97 04/19/19 20:45 88 128/79 04/19/19 20:42 93 H 94 04/19/19 20:37 88 95 04/19/19 20:32 87 95 04/19/19 20:30 18 04/19/19 20:29 84 136/81 04/19/19 20:27 94 H 97 04/19/19 20:22 103 H 97 04/19/19 20:17 96 H 95 04/19/19 20:15 88 132/78 04/19/19 20:12 94 H 99 04/19/19 20:07 93 H 96 04/19/19 20:02 91 H 97 04/19/19 20:00 97 H 18 143/82 H 04/19/19 19:57 97 H 96 04/19/19 19:52 89 96 04/19/19 19:47 92 H 98 04/19/19 19:45 90 135/78 04/19/19 19:42 90 95 04/19/19 19:37 83 95 04/19/19 19:32 98 H 94 04/19/19 19:30 90 20 134/78 04/19/19 19:27 93 H 97 04/19/19 19:22 91 H 96 04/19/19 19:17 102 H 96 04/19/19 19:14 37.1 C 85 20 132/80 04/19/19 19:12 90 97 04/19/19 19:07 90 97 04/19/19 19:02 98 H 96 04/19/19 18:59 90 133/77 04/19/19 18:57 91 H 96 04/19/19 18:52 105 H 96 04/19/19 18:47 97 H 96 04/19/19 18:45 94 H 133/81 04/19/19 18:42 91 H 96 04/19/19 18:37 93 H 97 04/19/19 18:32 97 H 97 04/19/19 18:29 90 129/86 04/19/19 18:27 92 H 96 04/19/19 18:22 93 H 98 04/19/19 18:17 96 H 96 04/19/19 18:14 90 133/83 04/19/19 18:12 93 H 96 04/19/19 18:07 97 H 98 04/19/19 18:02 94 H 97 04/19/19 17:59 93 H 20 142/81 H 04/19/19 17:57 91 H 97 04/19/19 17:52 98 H 96 04/19/19 17:47 91 H 96 04/19/19 17:45 87 124/80 04/19/19 17:42 93 H 96 04/19/19 17:37 92 H 97 04/19/19 17:32 90 97 04/19/19 17:29 88 144/80 H 04/19/19 17:27 97 H 97 04/19/19 17:22 98 H 97 04/19/19 17:17 91 H 97 04/19/19 17:15 98 H 129/84 04/19/19 17:12 94 H 97 04/19/19 17:07 103 H 97 04/19/19 17:02 96 H 97 04/19/19 17:00 37.0 C 87 16 127/83 04/19/19 16:57 87 97 04/19/19 16:52 93 H 98 04/19/19 16:47 89 98 04/19/19 16:44 85 133/82 04/19/19 16:42 92 H 98 04/19/19 16:37 97 H 98 04/19/19 16:32 99 H 98 04/19/19 16:29 89 134/82 04/19/19 16:27 88 97 04/19/19 16:22 87 98 04/19/19 16:17 92 H 99 04/19/19 16:14 86 133/80 04/19/19 16:12 93 H 99 04/19/19 16:07 95 H 99 04/19/19 16:02 91 H 97 04/19/19 16:00 16 04/19/19 15:59 101 H 134/84 04/19/19 15:57 90 98 04/19/19 15:52 96 H 98 04/19/19 15:47 90 98 PG Care Time/CCT Total # of Minutes Spent Total Time Spent with Patient: Total time spent is greater than 50% in coord ination of care (as documented) at patient's floor/unit and/or counseling patient:
--- NOTE | 2019-04-20 07:17 | Obstetrical Progress Note ---
Date of Service April 20, 2019 Assessment & Plan (1) with 41 completed weeks gestation: Has finally made cervical change despite not demonstrating adequate MVU, and is maxed out on my pitocin protocol. Fetus category. will continue current management. Subjective comfortable Physical Exam Constitutional: WD/WN, vitals as above Psychiatric: A+Ox3, euthymic affect Genitourinary: cx--6+/100/-2--1 toco--q2-3, pit at 30, MVus are not adequate efm--130s with mod variability, accels to 150s, no decels Results & Data Vital Signs (Past 12 Hours) Vital Signs Temp Pulse Resp BP Pulse Ox 04/20/19 07:08 37.3 C 20 04/20/19 07:07 99 H 98 04/20/19 07:02 94 H 99 04/20/19 06:59 101 H 137/78 04/20/19 06:57 89 99 04/20/19 06:52 84 97 04/20/19 06:47 96 H 98 04/20/19 06:45 88 135/85 04/20/19 06:42 90 96 04/20/19 06:37 83 95 04/20/19 06:32 89 95 04/20/19 06:30 20 04/20/19 06:29 85 130/72 04/20/19 06:27 82 96 04/20/19 06:22 92 H 96 04/20/19 06:17 86 97 04/20/19 06:15 37.6 C H 04/20/19 06:14 93 H 134/74 04/20/19 06:12 97 H 98 04/20/19 06:07 92 H 95 04/20/19 06:02 87 96 04/20/19 06:00 18 04/20/19 05:59 86 106/60 04/20/19 05:57 84 97 04/20/19 05:52 82 96 04/20/19 05:47 85 96 04/20/19 05:44 82 107/55 L 04/20/19 05:42 83 95 04/20/19 05:37 85 95 04/20/19 05:32 89 95 04/20/19 05:30 92 H 18 115/65 04/20/19 05:27 85 94 04/20/19 05:22 85 95 04/20/19 05:17 83 94 04/20/19 05:14 83 116/71 04/20/19 05:12 86 95 04/20/19 05:07 92 H 95 04/20/19 05:02 88 92 04/20/19 05:00 20 04/20/19 04:59 83 129/73 04/20/19 04:57 89 95 04/20/19 04:52 87 94 04/20/19 04:47 87 94 04/20/19 04:44 87 119/68 04/20/19 04:42 87 95 04/20/19 04:40 37.4 C 04/20/19 04:37 88 94 04/20/19 04:32 88 94 04/20/19 04:30 90 18 119/69 04/20/19 04:27 94 H 95 04/20/19 04:22 98 H 96 04/20/19 04:17 102 H 97 04/20/19 04:15 100 H 133/79 04/20/19 04:12 97 H 96 04/20/19 04:07 98 H 96 04/20/19 04:02 100 H 96 04/20/19 04:00 18 04/20/19 03:59 106 H 129/79 04/20/19 03:57 100 H 97 04/20/19 03:52 107 H 96 04/20/19 03:47 100 H 95 04/20/19 03:45 106 H 134/82 04/20/19 03:42 106 H 98 04/20/19 03:37 112 H 97 04/20/19 03:35 38.0 C H 18 04/20/19 03:32 96 H 95 04/20/19 03:30 94 H 125/70 04/20/19 03:27 93 H 95 04/20/19 03:22 91 H 96 04/20/19 03:17 109 H 97 04/20/19 03:14 105 H 126/74 04/20/19 03:12 97 H 97 04/20/19 03:07 98 H 97 04/20/19 03:02 93 H 96 04/20/19 02:59 96 H 125/73 04/20/19 02:57 94 H 96 04/20/19 02:52 94 H 96 04/20/19 02:47 94 H 97 04/20/19 02:45 93 H 131/77 04/20/19 02:42 94 H 98 04/20/19 02:37 97 H 99 04/20/19 02:32 98 H 99 04/20/19 02:30 18 04/20/19 02:29 95 H 141/77 H 04/20/19 02:27 101 H 100 04/20/19 02:22 107 H 100 04/20/19 02:17 95 H 100 04/20/19 02:14 97 H 134/81 04/20/19 02:12 93 H 100 04/20/19 02:07 100 H 98 04/20/19 02:02 102 H 98 04/20/19 02:00 18 04/20/19 01:59 96 H 130/74 04/20/19 01:57 116 H 97 04/20/19 01:52 99 H 99 04/20/19 01:47 100 H 99 04/20/19 01:45 16 04/20/19 01:44 95 H 124/77 04/20/19 01:42 90 96 04/20/19 01:37 90 96 04/20/19 01:32 95 H 95 04/20/19 01:29 94 H 115/75 04/20/19 01:27 91 H 97 04/20/19 01:22 93 H 95 04/20/19 01:17 93 H 96 04/20/19 01:15 37.3 C 16 04/20/19 01:14 101 H 115/70 04/20/19 01:12 92 H 94 04/20/19 01:07 89 94 04/20/19 01:02 91 H 95 04/20/19 00:59 86 115/70 04/20/19 00:57 87 95 04/20/19 00:52 95 H 97 04/20/19 00:47 92 H 94 04/20/19 00:45 16 04/20/19 00:44 93 H 99/55 L 04/20/19 00:42 94 H 94 04/20/19 00:37 94 H 94 04/20/19 00:32 97 H 96 04/20/19 00:30 100 H 105/61 04/20/19 00:27 93 H 97 04/20/19 00:22 101 H 109/58 L 96 04/20/19 00:17 100 H 96 04/20/19 00:15 18 04/20/19 00:12 100 H 97 04/20/19 00:07 100 H 97 04/20/19 00:02 105 H 98 04/20/19 00:00 101 H 116/62 04/19/19 23:57 104 H 99 04/19/19 23:52 108 H 97 04/19/19 23:47 105 H 99 04/19/19 23:45 100 H 20 131/71 04/19/19 23:42 104 H 98 04/19/19 23:37 88 96 04/19/19 23:32 86 96 04/19/19 23:29 90 120/71 04/19/19 23:27 86 95 04/19/19 23:22 92 H 95 04/19/19 23:17 89 96 04/19/19 23:15 87 16 127/77 04/19/19 23:12 95 H 96 04/19/19 23:08 37.5 C 04/19/19 23:07 102 H 95 04/19/19 23:02 92 H 95 04/19/19 23:00 18 04/19/19 22:59 93 H 124/68 04/19/19 22:57 93 H 95 04/19/19 22:52 90 95 04/19/19 22:47 90 95 04/19/19 22:44 90 123/72 04/19/19 22:42 89 95 04/19/19 22:37 92 H 95 04/19/19 22:32 94 H 96 04/19/19 22:30 18 04/19/19 22:29 95 H 125/72 04/19/19 22:27 99 H 97 04/19/19 22:22 96 H 97 04/19/19 22:17 105 H 97 04/19/19 22:14 102 H 124/70 04/19/19 22:12 98 H 97 04/19/19 22:07 85 96 04/19/19 22:02 86 95 04/19/19 22:00 16 04/19/19 21:59 87 132/72 04/19/19 21:57 89 95 04/19/19 21:52 93 H 95 04/19/19 21:47 86 97 04/19/19 21:45 89 129/73 04/19/19 21:42 94 H 98 04/19/19 21:37 94 H 97 04/19/19 21:32 98 H 97 04/19/19 21:30 36.9 C 18 04/19/19 21:29 93 H 124/75 04/19/19 21:27 96 H 97 04/19/19 21:22 88 97 04/19/19 21:17 89 97 04/19/19 21:15 90 130/77 04/19/19 21:12 85 96 04/19/19 21:07 87 95 04/19/19 21:02 86 95 04/19/19 21:00 16 04/19/19 20:59 85 125/77 04/19/19 20:57 87 96 04/19/19 20:52 89 96 04/19/19 20:47 101 H 97 04/19/19 20:45 88 128/79 04/19/19 20:42 93 H 94 04/19/19 20:37 88 95 04/19/19 20:32 87 95 04/19/19 20:30 18 04/19/19 20:29 84 136/81 04/19/19 20:27 94 H 97 04/19/19 20:22 103 H 97 04/19/19 20:17 96 H 95 04/19/19 20:15 88 132/78 04/19/19 20:12 94 H 99 04/19/19 20:07 93 H 96 04/19/19 20:02 91 H 97 04/19/19 20:00 97 H 18 143/82 H 04/19/19 19:57 97 H 96 04/19/19 19:52 89 96 04/19/19 19:47 92 H 98 04/19/19 19:45 90 135/78 04/19/19 19:42 90 95 04/19/19 19:37 83 95 04/19/19 19:32 98 H 94 04/19/19 19:30 90 20 134/78 04/19/19 19:27 93 H 97 04/19/19 19:22 91 H 96 04/19/19 19:17 102 H 96 04/19/19 19:14 37.1 C 85 20 132/80 PG Care Time/CCT Total # of Minutes Spent Total Time Spent with Patient: Total time spent is greater than 50% in coordination of care (as documented) at patient's floor/unit and/or counseling patient:
--- NOTE | 2019-04-20 08:23 | Obstetrical Progress Note ---
Date of Service April 20, 2019 Assessment & Plan (1) with 41 completed weeks gestation: Very uncomfortable and would like to have her epidural redosed before pushing. fht back in 120s. Fetus overall reassuring. Pit off now. Will start second stage once more comfortable. Subjective Patient suddenly got very uncomfortable. Physical Exam Constitutional: WD/WN, vitals as above Psychiatric: A+Ox3, euthymic affect Genitourinary: cx-c/c/+1 toco--q1-3min, pit at 30, now off efm--135 with mod variability, small accels, has a bit of a decel with a run of several contractions on top of one another. this has now resolved. Results & Data Vital Signs (Past 12 Hours) Vital Signs Temp Pulse Resp BP Pulse Ox 04/20/19 08:17 97 H 99 04/20/19 08:14 87 120/57 L 04/20/19 08:12 91 H 100 04/20/19 08:07 95 H 100 04/20/19 08:02 104 H 100 04/20/19 08:00 97 H 144/90 H 04/20/19 07:57 86 99 04/20/19 07:52 94 H 99 04/20/19 07:47 97 H 100 04/20/19 07:45 98 H 132/82 04/20/19 07:42 92 H 100 04/20/19 07:37 90 99 04/20/19 07:32 92 H 99 04/20/19 07:29 90 126/80 04/20/19 07:27 87 99 04/20/19 07:22 92 H 99 04/20/19 07:17 98 H 100 04/20/19 07:16 96 H 143/78 H 04/20/19 07:12 101 H 97 04/20/19 07:08 37.3 C 20 04/20/19 07:07 99 H 98 04/20/19 07:02 94 H 99 04/20/19 07:00 20 04/20/19 06:59 101 H 137/78 04/20/19 06:57 89 99 04/20/19 06:52 84 97 04/20/19 06:47 96 H 98 04/20/19 06:45 88 135/85 04/20/19 06:42 90 96 04/20/19 06:37 83 95 04/20/19 06:32 89 95 04/20/19 06:30 20 04/20/19 06:29 85 130/72 04/20/19 06:27 82 96 04/20/19 06:22 92 H 96 04/20/19 06:17 86 97 04/20/19 06:15 37.6 C H 04/20/19 06:14 93 H 134/74 04/20/19 06:12 97 H 98 04/20/19 06:07 92 H 95 04/20/19 06:02 87 96 04/20/19 06:00 18 04/20/19 05:59 86 106/60 04/20/19 05:57 84 97 04/20/19 05:52 82 96 04/20/19 05:47 85 96 04/20/19 05:44 82 107/55 L 04/20/19 05:42 83 95 04/20/19 05:37 85 95 04/20/19 05:32 89 95 04/20/19 05:30 92 H 18 115/65 04/20/19 05:27 85 94 04/20/19 05:22 85 95 04/20/19 05:17 83 94 04/20/19 05:14 83 116/71 04/20/19 05:12 86 95 04/20/19 05:07 92 H 95 04/20/19 05:02 88 92 04/20/19 05:00 20 04/20/19 04:59 83 129/73 04/20/19 04:57 89 95 04/20/19 04:52 87 94 04/20/19 04:47 87 94 04/20/19 04:44 87 119/68 04/20/19 04:42 87 95 04/20/19 04:40 37.4 C 04/20/19 04:37 88 94 04/20/19 04:32 88 94 04/20/19 04:30 90 18 119/69 04/20/19 04:27 94 H 95 04/20/19 04:22 98 H 96 04/20/19 04:17 102 H 97 04/20/19 04:15 100 H 133/79 04/20/19 04:12 97 H 96 04/20/19 04:07 98 H 96 04/20/19 04:02 100 H 96 04/20/19 04:00 18 04/20/19 03:59 106 H 129/79 04/20/19 03:57 100 H 97 04/20/19 03:52 107 H 96 04/20/19 03:47 100 H 95 04/20/19 03:45 106 H 134/82 04/20/19 03:42 106 H 98 04/20/19 03:37 112 H 97 04/20/19 03:35 38.0 C H 18 04/20/19 03:32 96 H 95 04/20/19 03:30 94 H 125/70 04/20/19 03:27 93 H 95 04/20/19 03:22 91 H 96 04/20/19 03:17 109 H 97 04/20/19 03:14 105 H 126/74 04/20/19 03:12 97 H 97 04/20/19 03:07 98 H 97 04/20/19 03:02 93 H 96 04/20/19 02:59 96 H 125/73 04/20/19 02:57 94 H 96 04/20/19 02:52 94 H 96 04/20/19 02:47 94 H 97 04/20/19 02:45 93 H 131/77 04/20/19 02:42 94 H 98 04/20/19 02:37 97 H 99 04/20/19 02:32 98 H 99 04/20/19 02:30 18 04/20/19 02:29 95 H 141/77 H 04/20/19 02:27 101 H 100 04/20/19 02:22 107 H 100 04/20/19 02:17 95 H 100 04/20/19 02:14 97 H 134/81 04/20/19 02:12 93 H 100 04/20/19 02:07 100 H 98 04/20/19 02:02 102 H 98 04/20/19 02:00 18 04/20/19 01:59 96 H 130/74 04/20/19 01:57 116 H 97 04/20/19 01:52 99 H 99 04/20/19 01:47 100 H 99 04/20/19 01:45 16 04/20/19 01:44 95 H 124/77 04/20/19 01:42 90 96 04/20/19 01:37 90 96 04/20/19 01:32 95 H 95 04/20/19 01:29 94 H 115/75 04/20/19 01:27 91 H 97 04/20/19 01:22 93 H 95 04/20/19 01:17 93 H 96 04/20/19 01:15 37.3 C 16 04/20/19 01:14 101 H 115/70 04/20/19 01:12 92 H 94 04/20/19 01:07 89 94 04/20/19 01:02 91 H 95 04/20/19 00:59 86 115/70 04/20/19 00:57 87 95 04/20/19 00:52 95 H 97 04/20/19 00:47 92 H 94 04/20/19 00:45 16 04/20/19 00:44 93 H 99/55 L 04/20/19 00:42 94 H 94 04/20/19 00:37 94 H 94 04/20/19 00:32 97 H 96 04/20/19 00:30 100 H 105/61 04/20/19 00:27 93 H 97 04/20/19 00:22 101 H 109/58 L 96 04/20/19 00:17 100 H 96 04/20/19 00:15 18 04/20/19 00:12 100 H 97 04/20/19 00:07 100 H 97 04/20/19 00:02 105 H 98 04/20/19 00:00 101 H 116/62 04/19/19 23:57 104 H 99 04/19/19 23:52 108 H 97 04/19/19 23:47 105 H 99 04/19/19 23:45 100 H 20 131/71 04/19/19 23:42 104 H 98 04/19/19 23:37 88 96 04/19/19 23:32 86 96 04/19/19 23:29 90 120/71 04/19/19 23:27 86 95 04/19/19 23:22 92 H 95 04/19/19 23:17 89 96 04/19/19 23:15 87 16 127/77 04/19/19 23:12 95 H 96 04/19/19 23:08 37.5 C 04/19/19 23:07 102 H 95 04/19/19 23:02 92 H 95 04/19/19 23:00 18 04/19/19 22:59 93 H 124/68 04/19/19 22:57 93 H 95 04/19/19 22:52 90 95 04/19/19 22:47 90 95 04/19/19 22:44 90 123/72 04/19/19 22:42 89 95 04/19/19 22:37 92 H 95 04/19/19 22:32 94 H 96 04/19/19 22:30 18 04/19/19 22:29 95 H 125/72 04/19/19 22:27 99 H 97 04/19/19 22:22 96 H 97 04/19/19 22:17 105 H 97 04/19/19 22:14 102 H 124/70 04/19/19 22:12 98 H 97 04/19/19 22:07 85 96 04/19/19 22:02 86 95 04/19/19 22:00 16 04/19/19 21:59 87 132/72 04/19/19 21:57 89 95 04/19/19 21:52 93 H 95 04/19/19 21:47 86 97 04/19/19 21:45 89 129/73 04/19/19 21:42 94 H 98 04/19/19 21:37 94 H 97 04/19/19 21:32 98 H 97 04/19/19 21:30 36.9 C 18 04/19/19 21:29 93 H 124/75 04/19/19 21:27 96 H 97 04/19/19 21:22 88 97 04/19/19 21:17 89 97 04/19/19 21:15 90 130/77 04/19/19 21:12 85 96 04/19/19 21:07 87 95 04/19/19 21:02 86 95 04/19/19 21:00 16 04/19/19 20:59 85 125/77 04/19/19 20:57 87 96 04/19/19 20:52 89 96 04/19/19 20:47 101 H 97 04/19/19 20:45 88 128/79 04/19/19 20:42 93 H 94 04/19/19 20:37 88 95 04/19/19 20:32 87 95 11/08/19 20:30 18 04/19/19 20:29 84 136/81 04/19/19 20:27 94 H 97 04/19/19 20:22 103 H 97 PG Care Time/CCT Total # of Minutes Spent Total Time Spent with Patient: Total time spent is greater than 50% in coordination of care (as documented) at patient's floor/unit and/or counseling patient:
[2019-04-20] MEDS ORDERED: CARBOPROST TROMETHAMINE 250 MCG/ML AMPUL ONE (08:36)
[2019-04-20] MEDS ORDERED: METHYLERGONOVINE MALEATE 0.2 MG/ML AMP ONE (08:36)
[2019-04-20] MEDS ORDERED: BUPIVACAINE 0.25% 30 ML VIAL ONE ×2 (08:49→14:14)
[2019-04-20] MEDS: OXYTOCIN 30 UNITS/500 ML BAG IV PRN (13:41)
[2019-04-20] MEDS ORDERED: fentaNYL 2MCG/ML ROPIV 1.25MG/ML 100 ML BAG EPI ONE (14:07)
[2019-04-20] MEDS ORDERED: fentaNYL 2MCG/ML ROPIV 1.25MG/ML 100 ML BAG EPI PRN (14:07)
[2019-04-20] MEDS ORDERED: miSOPROStoL 200 MCG TAB ONE (16:19)
[2019-04-20] MEDS ORDERED: BENZOCAINE 20% AER SPR 82.5 GM CAN EXT ONE (16:19)
[2019-04-20] MEDS ORDERED: OXYTOCIN 30 UNITS/500 ML BAG IV PRN (16:41)
[2019-04-20] MEDS ORDERED: DIPHTHERIA/TETANUS/PERTUSSIS 0.5 ML SYR/VIAL IM ONE (16:41)
[2019-04-20] MEDS ORDERED: BENZOCAINE 20% AER SPR 82.5 GM CAN EXT PRN (16:41)
[2019-04-20] MEDS ORDERED: ACETAMINOPHEN 325 MG TAB PO PRN (16:41)
[2019-04-20] MEDS ORDERED: miSOPROStoL 200 MCG TAB PR ONE (16:41)
[2019-04-20] MEDS ORDERED: METHYLERGONOVINE MALEATE 0.2 MG/ML AMP IM ONE (16:41)
[2019-04-20] MEDS ORDERED: HYDROCORTISONE ACETATE 25 MG SUPP PR PRN (16:41)
--- NOTE | 2019-04-20 17:09 | Anesthesia Procedure Note ---
Date of Service April 20, 2019 Anesthesia Post Epidural Note Vital Signs Vital Signs: Temp Pulse Resp BP Pulse Ox 37.4 C 117 H 20 155/65 H 98 04/20/19 13:52 04/20/19 17:07 04/20/19 13:52 04/20/19 16:59 04/20/19 17:07 Pain Intensity Bilateral Abdomen: Pain Intensity: 4 Notes Mental Status: alert / awake / arousable Patient Amnestic to Procedure: No Nausea / Vomiting: adequately controlled Pain: adequately controlled Airway Patency, RR, SpO2: stable & adequate BP & HR: stable & adequate Hydration State: stable & adequate Neuraxial Anesthesia: was administered and sensory block is resolving Anesthetic Complications: no major complications apparent and Pt Satisfied with anesthetic care
[2019-04-20 17:40] LABS: Base Excess Cord Arterial Bld -6.3 mEq/L (-9-1.8); CO2 Cord Arterial Blood 34 mmHg (39.1-73.5); HCO3 Cord Arterial Blood 18 mmol/L (19.7-28.5); pH Cord Arterial Blood 7.34 (7.1-7.38)
--- NOTE | 2019-04-20 19:23 | Delivery Summary ---
DATE OF OPERATION: 04/20/2019 PROCEDURE: 1. Normal spontaneous vaginal delivery. 2. First degree perineal laceration repair. SURGEON: Dilshad Nino MD. PREOPERATIVE DIAGNOSES: 1. Single intrauterine at 41 weeks' gestational age. 2. Advanced maternal age. 3. Induction of labor. 4. Hypothyroidism. POSTOPERATIVE DIAGNOSES: 1. Single intrauterine at 41 weeks' gestational age. 2. Advanced maternal age. 3. Induction of labor. 4. Hypothyroidism. 5. Shoulder dystocia. 6. Macrosomia. 7. Delivered. ESTIMATED BLOOD LOSS: 400 mL. DRAINS: None. Straight cath at the completion of the case for 500 mL of urine. COMPLICATIONS: Shoulder dystocia. FLUIDS: Continuous lactated Ringer. INDICATIONS: Ms. Ray is a 34-year-old who presented for induction of labor. The patient was noted to progress in labor slow and received an epidural for anesthesia. At approximately 8:00 a.m. on the second day of admission, the patient went from 6 cm to complete over an approximately 25-minute period. At that time, the patient was still noted to have a high station and labored down for approximately 1 hour. The patient began to push and she pushed for a short period of time and then requested further time to labor down, was allowed for another hour. The patient again started pushing, pushed for approximately 1 hour and then asked for time to rest as she was feeling significantly fatigued. The patient was allowed to rest for approximately another 45 minutes, at which time she did start pushing again and pushed for an additional 3 hours to achieve delivery. FINDINGS: Viable female infant with Apgars of 7 and 7, weight 9 pounds 6 ounces. DESCRIPTION OF PROCEDURE: The patient progressed to 10 cm dilated, 100% effaced, +1 station, at which time she pushed for approximately 3-1/2 hours in total to achieve delivery. Head of the delivered initially in EVARISTO position. The fetus then restituted and was noted to have the left shoulder anterior. After the head delivered, a gentle attempt to deliver the shoulder was initiated; however, the shoulder did not deliver. The patient was placed in Vesna position and again a second attempt to deliver was made without relief. A suprapubic pressure was then applied, which did not result in delivery. Attempt at the posterior shoulder was then applied, which was able to be delivered, which occurred approximately 2 minutes after the head was initially out. After the delivery of the posterior shoulder, the anterior shoulder did quickly followed and the remainder of the body followed. was noticed to be floppy upon delivery and the cord was quickly clamped and cut and the was taken to the waiting nursery staff for resuscitation. Attention was then turned to the mother and cord segment and cord blood were obtained. Attention was then turned to deliver the placenta, which was delivered intact, 3-vessel cord with gentle cord traction. Uterine massage was then initiated. The patient was given a dose of Methergine IM as a prophylactic secondary to prolonged pushing as well as heavy bleeding. Oxytocin also ran wide open for 1 full bag at 500 mL of 30 units. After delivery of the placenta, attention was turned to the perineum, vagina and cervix were inspected and there noted to be a first degree vaginal sidewall laceration, which was repaired with 3-0 Vicryl in single interrupted stitch. Following this, both mother and were noted to be stable and a decision was made to end the case. 800 mcg of Cytotec were placed per rectum at the completion of the procedure. Needle, sponge and instrument counts were correct at the completion of the case. I attest to the content of the Intraoperative Record and any orders documented therein. Any exceptions are noted below. MTDD
[2019-04-20] MEDS: IBUPROFEN 600 MG TAB PO PRN (20:11)
[2019-04-20] MEDS: DOCUSATE SODIUM 100 MG CAP PO SCH (20:11)
[2019-04-20] MEDS: SUPERCREAM 0.870% 15 GM JAR EXT PRN (20:12)
[2019-04-21] MEDS: IBUPROFEN 600 MG TAB PO PRN ×3 (06:28→16:42)
[2019-04-21] MEDS: LEVOTHYROXINE SODIUM 137 MCG TABLET PO SCH (06:28)
[2019-04-21 06:38] LABS: Hematocrit (blood only) 34.5 % (37-47); Hemoglobin 11.6 g/dL (12.0-16.0); Mean Corpuscular Hemoglobin 29.3 pg (25-34); Mean Corpuscular Hgb Conc 33.6 g/dL (32-36); Mean Corpuscular Volume 87.1 fL (80-100); Platelet Count 211 K/uL (130-400); RDW Coefficient of Variation 14.6 % (11.5-14.5); RDW Standard Deviation 46.3 fL (36.4-46.3); Red Blood Count 3.96 M/uL (4.2-5.4); White Blood Count 21.27 K/uL (4.8-10.8)
--- NOTE | 2019-04-21 08:41 | Obstetrical Progress Note ---
Date of Service April 21, 2019 Assessment & Plan (1) care and examination: 34yo s/p . Delivery complicated by shoulder dystocia - Doing well - Routine care Subjective Ambulation: ambulating normally Voiding: no voiding problems Passing Gas:: Yes Diet Tolerance:: regular diet Lochia:: Moderate Feeding Type:: breast feeding Current Pain Level(1-10): 3 Physical Exam Constitutional WD/WN, vitals as above Gastrointestinal (Abdomen) Inspection/Auscultation: abdomen normal to inspection; abdomen not distended Percussion/Palpation: abdomen nontender, no guarding and no hepatomegaly Psychiatric A+Ox3, euthymic affect Genitourinary OB Exam Abdomen: + fundal height Fundus: + firm and + relation to umbilicus (Below); not tender Results & Data Vital Signs (Past 12 Hours) Vital Signs Temp Pulse Resp BP Pulse Ox 04/21/19 04:50 36.4 C L 85 16 112/75 97 04/20/19 23:50 37.1 C 94 H 16 124/75 97
[2019-04-21] MEDS: FERROUS SULFATE 325 MG TAB PO SCH (08:52)
[2019-04-21] MEDS: DOCUSATE SODIUM 100 MG CAP PO SCH ×2 (08:52→20:04)
[2019-04-21] MEDS: PRENATAL VITAMIN 1 TAB PO SCH (08:52)
[2019-04-21] MEDS ORDERED: BISACODYL 5 MG TABEC PO SCH (20:00)
[2019-04-21 21:01] VITALS: TEMP 97.9
[2019-04-21 23:43] VITALS: O2SAT 98
[2019-04-22] MEDS: LEVOTHYROXINE SODIUM 137 MCG TABLET PO SCH (05:57)
[2019-04-22] MEDS: IBUPROFEN 600 MG TAB PO PRN ×2 (05:57→10:11)
--- NOTE | 2019-04-22 06:42 | Obstetrical Progress Note ---
Date of Service April 22, 2019 Assessment & Plan (1) care and examination: -PPD#2 -Vitals reviewed, WNL (Tmax 36.6) - GBS -, Blood Type B+ - Clinically stable. - Feels well today. Eating well, voiding well, ambulating well. - Pain well controlled. - Routine post- care - After discharge will have [address] Nino. Day #:: 2 Subjective Ambulation: ambulating normally Voiding: no voiding problems Passing Gas:: Yes Diet Tolerance:: regular diet Lochia:: Small Feeding Type:: breast feeding Current Pain Level(1-10): 2 (improves with analgesics) Patient is a 34 PPD#2. Patient states that she is feeling well today and that her pain is well controlled. She has no other complaints at this time. Constitutional: no fever and no chills Respiratory: no cough, no dyspnea and no wheezing Cardiovascular: no chest pain, no dyspnea, no palpitations, no edema and no calf pain Breast: no breast pain Gastrointestinal: no abdominal pain, no nausea and no vomiting Genitourinary (female): no dysuria and no difficulty urinating Neurologic: no headache(s) Physical Exam Constitutional WD/WN, vitals as above well developed and well nourished; no acute distress Eyes normal visual wells by confrontation ENMT external ear and nose normal, oropharynx normal Neck normal visual inspection Respiratory normal respiratory effort, lungs clear to auscultation Cardiovascular Rate/Rhythm: regular rate and regular rhythm Heart Sounds: normal S1 and normal S2; no murmur Extremities: + edema (+1) Gastrointestinal (Abdomen) Inspection/Auscultation: normal bowel sounds Percussion/Palpation: + abdomen tender (minimal ttp lower quadrants) and abdomen soft Musculoskeletal no cyanosis or clubbing, extremities motor strength 5/5 Skin no rashes, warm and dry Neurologic patellar DTR's 2+ bilat, sensation intact Psychiatric A+Ox3, euthymic affect Genitourinary OB Exam Abdomen: + fundal height Fundus: + firm and + relation to umbilicus (3cm below); not tender and not boggy Results & Data Vital Signs (Past 12 Hours) Vital Signs Temp Pulse Resp BP Pulse Ox 04/21/19 22:50 36.6 C 81 16 110/74 98 11/10/19 20:00 36.6 C 85 16 117/76 97 Resident Activity Tracking Resident Involvement: Resident Care Provided Care Provided: OB Delivery
[2019-04-22 06:48] LABS: Hematocrit (blood only) 32.3 % (37-47); Hemoglobin 10.6 g/dL (12.0-16.0)
[2019-04-22] MEDS: PRENATAL VITAMIN 1 TAB PO SCH (08:10)
[2019-04-22] MEDS: DOCUSATE SODIUM 100 MG CAP PO SCH (08:10)
[2019-04-22] MEDS: FERROUS SULFATE 325 MG TAB PO SCH (08:10)
[2019-04-22] MEDS ORDERED: BISACODYL 10 MG SUPP PR PRN (09:00)
[2019-04-22] MEDS: SUPERCREAM 0.870% 15 GM JAR EXT PRN (11:14)
[2019-04-22 13:45] VITALS: BP 120/77; PULSE 79
== END 2019-04-22 16:30 | disposition home or self-care (01) | DRG 807 ==
LOC: 4S1 07:42 → 4S2 04-20 19:45

== ENCOUNTER 2019-05-08 16:07 | Observation (INO) ==
[2019-05-08] MEDS ORDERED: NEOSTIGMINE METHYLSULFATE 5 MG/5 ML SYR ONE (16:36)
[2019-05-08] MEDS ORDERED: PROPOFOL IV EMULSION 10 MG/ML 20 ML VIAL IV ONE (16:36)
[2019-05-08] MEDS ORDERED: MIDAZOLAM HCL 1 MG/ML 2ML VIAL ONE (16:36)
[2019-05-08] MEDS ORDERED: KETOROLAC 30 MG/ML VIAL ONE (16:36)
[2019-05-08] MEDS ORDERED: ROCURONIUM BROMIDE 10 MG/ML 5 ML VIAL ONE (16:36)
[2019-05-08] MEDS ORDERED: ONDANSETRON INJ 2 MG/ML 2 ML VIAL ONE (16:36)
[2019-05-08] MEDS ORDERED: DEXAMETHASONE SOD INJ 4 MG/ML VIAL ONE (16:36)
[2019-05-08] MEDS ORDERED: fentaNYL citrate 100 MCG/2 ML VIAL ONE ×2 (16:36)
[2019-05-08] MEDS ORDERED: LARYING-O-JET KIT (LTA) ONE (16:36)
[2019-05-08] MEDS ORDERED: LIDOCAINE HCL 2% 2 ML VIAL/AMP(20MG/ML) INFIL ONE (16:36)
[2019-05-08] MEDS ORDERED: GLYCOPYRROLATE 0.2 MG/ML VIAL ONE (16:36)
--- NOTE | 2019-05-08 16:47 | History & Physical Report ---
Date of Service May 08, 2019 Assessment & Plan (1) Acute appendicitis with localized peritonitis: 34-year-old female with acute uncomplicated appendicitis. Discussed her options to include antibiotics versus surgery, the patient elects for surgery. Plan for laparoscopic appendectomy The risk the procedure were discussed to include but not limited to bleeding, infection, conversion open, normal appendix, need for future or more extensive surgery, damage to surrounding structures, and the risks of anesthesia Advised to pump and dump breastmilk for the next 24 hours after surgery Admit observation postop Likely discharge tomorrow morning Diagnosis, treatment options, and plan of care discussed the patient, all questions were answered, the patient expressed understanding agrees the plan of care as stated (2) History of thyroidectomy: (3) state: History of Present Illness Primary Care Provider: ANDREA Foster 34-year-old female transferred from [facility] for acute appendicitis. She is and had her baby on 22 April. The was overall uncomplicated as was the delivery. This morning she was awake at 530 and noticed some pain in her right lower quadrant. This became more severe and she presented to the emergency department. She denies any associated nausea but did have anorexia. No fevers. No similar episodes in the past. She had a CT scan performed which showed a dilated fluid-filled appendix consistent with appendicitis. She receives most of her medical care here and was , she requested transfer to our facility which accepted. Allergies Allergy/AdvReac Type Severity Reaction Status Date / Time No Known Allergies Allergy Verified 04/18/19 19:37 Home Medications Home Medications Medication Instructions Recorded Confirmed Type PNV cmb#95-ferrous fumarate-FA 1 tab PO DAILY 10/25/18 04/19/19 History [] calcium carbonate [Calcium 600] 600 mg PO DAILY 10/25/18 04/19/19 History omega 9-goi-rjd-fish oil [Fish Oil] 1 cap PO DAILY 10/25/18 04/19/19 History levothyroxine 137 mcg tablet 137 mcg PO DAILY 01/08/19 04/19/19 History Past Med/Surg History Medical History Elevated alkaline phosphatase level (Resolved) Graves disease (Resolved) Graves' disease (Resolved) History of migraine headaches History of varicella Hyperthyroidism (Resolved) Surgical History History of elective (Resolved) History of elective surgically induced History of thyroidectomy S/P wisdom tooth extraction Family History Mother Depression Dyslipidemia Sister Leukemia Seizures Other Colorectal cancer Social History Preferred Language: Kinyarwanda Communication Ability: Effective Teller Coordinator Required: No Beliefs That Will Affect Care: None marital status: Current Living Situation: Spouse current occupational status: employed Feels Safe at Home: Yes Smoking Status: Never smoker Second Hand Exposure: No ; Hx Alcohol Use: No Hx Substance Use: No Review of Systems Review of Systems: All systems reviewed & are unremarkable except as noted in HPI & below Physical Exam Constitutional: WD/WN, vitals as above Eyes: PERRL, conjunctivae normal, anicteric sclerae ENMT: external ear and nose normal, oropharynx normal Neck: trachea midline, no thyromegaly Respiratory: normal respiratory effort, lungs clear to auscultation Cardiovascular: RRR, no murmur, no edema Gastrointestinal (Abdomen): Percussion/Palpation: + abdomen tender (Tender palpation in the right lower quadrant with localized guarding), + guarding and abdomen soft; abdomen not rigid and no hernia Musculoskeletal: no cyanosis or clubbing, extremities motor strength 5/5 Skin: no rashes, warm and dry Neurologic: PERRL, EOMI, accommodation nl, no face palsy, no dysarthria Psychiatric: A+Ox3, euthymic affect Lymphatic: no cervical or axillary lymphadenopathy Results & Data Vital Signs (Past 12 Hours) Vital Signs Temp Pulse Resp BP Pulse Ox 05/08/19 15:58 37.0 C 70 20 130/87 100 Laboratory Results Labs reviewed from outside facility, WBC [address] scan reviewed from outside facility, fluid-filled and dilated appendix with thickened wall, appendix measures 8 mm. Minimal periappendiceal fat stranding. Insistent with acute appendicitis per PG Care Time/CCT Total # of Minutes Spent Total Time Spent with Patient: Total time spent is greater than 50% in coordination of care (as documented) at patient's floor/unit and/or counseling patient:
[2019-05-08] MEDS ORDERED: BUPIVACAINE 0.5 % 5 MG/1 ML MPF 30ML VIAL ONE (16:59)
--- NOTE | 2019-05-08 17:14 | Anesthesiology Consultation ---
Date of Service May 08, 2019 Assessment & Plan ASA ASA2E Proposed Anesthesia Anesthesia Type: General Risk / Benefits Reviewed With: PT / POA / Parent / Guardian, Accepts Plan and Informed Consent Obtained History Surgery Operation Date: 05/08/19 11:00 Proposed Procedures p Laparoscopic Appendectomy - Johnathan Roy DO, FACS Height/Weight Height: 5 ft 5 in Weight: 88.4 kg Allergies Allergy/AdvReac Type Severity Reaction Status Date / Time No Known Allergies Allergy Verified 04/18/19 19:37 Medications Home Medications Medication Instructions Recorded Confirmed Last Taken PNV cmb#95-ferrous fumarate-FA 1 tab PO DAILY 10/25/18 05/08/19 05/07/19 18:30 [] calcium carbonate [Calcium 600] 600 mg PO DAILY 10/25/18 05/08/19 05/07/19 18:30 omega 1-vhe-fyq-fish oil [Fish Oil] 1 cap PO DAILY 10/25/18 05/08/19 05/07/19 18:30 levothyroxine 137 mcg tablet 137 mcg PO DAILY 01/08/19 05/08/19 05/08/19 05:30 NPO Date Last Intake of Fluids: 05/08/19 Time Last Intake of Fluids: 08:00 Date Last Intake of Solids: 05/08/19 Time Last Intake of Solids: 08:00 Past Medical History Medical History Elevated alkaline phosphatase level (Resolved) Graves disease (Resolved) Graves' disease (Resolved) History of migraine headaches History of varicella Hyperthyroidism (Resolved) Exercise / Class Metabolic Activity II 4-5 Yardwork/Stairs/Walk up hill Past Family History Family History Mother Depression Dyslipidemia Sister Leukemia Seizures Other Colorectal cancer Past Surgical History Surgical History History of elective (Resolved) History of elective surgically induced History of thyroidectomy S/P wisdom tooth extraction Past Anesthesia History No Hx of Anesthesia Complications and No Family Hx of Anesthesia Complications History of PONV No Hx of PONV and No Hx of Motion Sickness Social History Smoking Status: Never smoker Hx Alcohol Use: No Hx Substance Use: No substance use type: does not use Review of Systems denies fever/cough/ colds/ chest pain/ SOB/ LUZMA denies DC/CVA/Seizure Physical Exam Vital Signs Last Vital Signs Temp 36.7 C 05/08/19 16:48 Pulse 62 05/08/19 16:48 Resp 18 05/08/19 16:48 BP 123/69 05/08/19 16:48 Pulse Ox 98 05/08/19 16:48 ENMT Mouth: no TMJ abnormality and no dentition abnormality Thyromental Distance: > or= 3.5 Finger Breadths Mallampati Class: II Neck neck extension not limited Respiratory normal respiratory effort; no respiratory distress Auscultation: lungs clear to auscultation bilaterally Cardiovascular Rate/Rhythm: regular rate and regular rhythm Neurologic moves all extremities Psychiatric Orientation: alert and oriented x 3
[2019-05-08] MEDS ORDERED: ePHEDrine sulfate 50 MG/ML AMP IV PRN (17:40)
[2019-05-08] MEDS ORDERED: ATROPINE SULFATE 0.1 MG/ML 10ML SYR IV PRN (17:40)
[2019-05-08] MEDS ORDERED: HYDROmorphone INJ 2 MG/ML SYR/VIAL IV PRN (17:40)
[2019-05-08] MEDS ORDERED: ONDANSETRON INJ 2 MG/ML 2 ML VIAL IV PRN ×2 (17:40→19:35)
[2019-05-08] MEDS ORDERED: cefOXitin 2,000 MG in DEXTROSE 5% 50 ML IV SCH (17:45)
--- NOTE | 2019-05-08 17:56 | Operative Report ---
PG Post Operative Report Pre & Post Diagnosis Operation Date: 05/08/19 11:00 Pre-Op Diagnosis: Acute Appendicitis Post-Op Diagnosis: Acute Appendicitis I identified the patient and participated in the time-out.: Yes Procedure Operation Date: 05/08/19 11:00 Actual Procedures p Laparoscopic Appendectomy - Johnathan Roy DO, FACS Surgeon Johnathan Roy DO, FACS Machine Icer Chadd Victor Estimated Blood Loss 4 Findings Consistent with Post-Op Diagnosis Acute, nonperforated appendicitis Specimens Appendix Anesthesia Type General Complications none Disposition Accompanied Patient To Recovery: No Disposition: Recovery Room Indications 34-year-old female with CT proven acute appendicitis, plan for laparoscopic appendectomy. The risks of the procedure were discussed, all questions were answered, and the patient agreed to proceed with surgery as planned. Description of Procedure The patient was properly identified, consented, and taken to the operating room where she was placed in the supine position. General endotracheal anesthesia was induced. SCDs and a safety belt were placed. Preoperative antibiotics were administered. A Rivera catheter was not placed. The patient's abdomen was prepped and draped in the standard sterile fashion. Surgical timeout was performed and all parties were in agreement that this was the correct patient and procedure to be performed and we continued as planned. A curvilinear infraumbilical incision was made with electrocautery and deepened down to the fascia with blunt dissection. The base of the umbilicus was grasped with a Prashanth and elevated towards the ceiling. An incision was made in the midline fascia with a knife and entry into the peritoneum was confirmed. Stay suture of 0 Vicryl was placed and a Blackwell trocar was inserted. The abdomen was insufflated with carbon dioxide which the patient tolerated without incident. The laparoscope was inserted and no damage from initial trocar placement was noted, no gross abnormalities were noted within the 4 quadrants the abdomen. 5 mm ports were then placed in the left lower quadrant with care not to damage the epigastric vessels, and in the suprapubic midline with care not to damage the bladder. The patient was placed in Trendelenburg position and rotated towards the left. The small bowel was swept away from the right lower quadrant. The cecum was grasped with an atraumatic grasper exposing the appendix. The appendix was moderately inflamed and there was no evidence of perforation. There was a small amount of turbid fluid in the pelvis. A window was created between the base of the appendix and the mesoappendix. A lindo loaded endoscopic stapler was then used to divide the appendix at its base. A lindo load was then used to divide the mesoappendix. Hemostasis was good. The appendix was placed in an Endo Catch bag and removed through the umbilical port site. The right lower quadrant and pelvis was irrigated and hemostasis was found to be good. 5 mm trochars were removed under direct visualization and the abdomen was allowed to collapse. The umbilical port site fascia was closed with 0 Vicryl suture. The wound was irrigated, and the skin of all ports was closed with 4-0 Monocryl subcuticular sutures. Dermabond was placed over the wounds. The patient was extubated in the operating room and taken to the PACU where she recovered without apparent incident. All sponge, instrument and needle counts were correct at the conclusion of the procedure. The patient tolerated the procedure well. The physician's licensed nursing assistant was present and scrubbed for the entire the case. He was critical in positioning the patient, prepping and draping, retraction and exposure, driving the laparoscope, closure the incisions, and placement of the dressings. I attest to the content of the Intraoperative Record and any orders documented therein. Any exceptions are noted below.
[2019-05-08] MEDS: fentaNYL citrate 100 MCG/2 ML VIAL IV PRN ×2 (18:26→18:31)
--- NOTE | 2019-05-08 18:49 | Anesthesiology Progress Note ---
Date of Service May 08, 2019 Anesthesia Post Procedure Vital Signs Vital Signs: Temp Pulse Pulse Pulse Resp BP BP 05/08/19 18:45 36.6 C 54 L 16 114/70 05/08/19 18:35 52 L 16 120/71 05/08/19 18:25 58 L 16 115/73 05/08/19 18:15 55 L 16 121/78 05/08/19 18:08 36.2 C L 56 L 16 118/79 05/08/19 16:48 36.7 C 62 18 123/69 05/08/19 15:58 37.0 C 70 20 130/87 Pulse Ox 05/08/19 18:45 95 05/08/19 18:35 100 05/08/19 18:25 100 05/08/19 18:15 100 05/08/19 18:08 100 05/08/19 16:48 98 05/08/19 15:58 100 Pain Intensity Right Abdomen: Pain Intensity: 8 Transfer of Care Handoff Completed per policy Notes Mental Status: alert / awake / arousable and participated in evaluation Patient Amnestic to Procedure: Yes Nausea / Vomiting: adequately controlled Pain: adequately controlled Airway Patency, RR, SpO2: stable & adequate BP & HR: stable & adequate Hydration State: stable & adequate Anesthetic Complications: no major complications apparent and Pt Satisfied with anesthetic care
[2019-05-08] MEDS ORDERED: ACETAMINOPHEN 325 MG TAB PO PRN (19:35)
[2019-05-08] MEDS ORDERED: OXYCODONE/ACETAMINOPHEN 5mg/325mg TAB PO PRN (19:35)
[2019-05-08] MEDS ORDERED: MoRPHine SULFATE 4 MG/ML 1 ML CARP\\VIAL IV PRN (20:00)
[2019-05-08] MEDS ORDERED: MoRPHine SULFATE 2 MG/ML CARP IV PRN (20:01)
[2019-05-08] MEDS: OXYCODONE/ACETAMINOPHEN 5mg/325mg TAB PO PRN (20:17)
[2019-05-08] MEDS: LACTATED RINGER'S 1,000 ML IV SCH (20:18)
[2019-05-09 03:35] VITALS: TEMP 98.4
[2019-05-09] MEDS: LACTATED RINGER'S 1,000 ML IV SCH (05:00)
[2019-05-09] MEDS: OXYCODONE/ACETAMINOPHEN 5mg/325mg TAB PO PRN ×2 (05:00→09:45)
[2019-05-09] MEDS ORDERED: LEVOTHYROXINE SODIUM 137 MCG TABLET PO SCH (06:30)
[2019-05-09 07:37] VITALS: BP 116/73; O2SAT 95
--- NOTE | 2019-05-09 08:51 | Surgery Progress Note ---
Date of Service May 09, 2019 Assessment & Plan (1) Acute appendicitis with localized peritonitis: POD 1 lap appy ok for d/c Subjective tolerating diet, minimal pain Physical Exam Gastrointestinal (Abdomen): Inspection/Auscultation: + abdominal surgical incision (dry) Percussion/Palpation: abdomen soft Results & Data Vital Signs (Past 12 Hours) Vital Signs Temp Pulse Resp BP Pulse Ox 05/09/19 07:37 36.9 C 69 16 116/73 95 05/09/19 03:27 36.9 C 65 16 98/59 L 96 05/08/19 22:56 36.7 C 58 L 15 107/72 97 05/08/19 22:36 36.4 C L 54 L 17 110/71 95 05/08/19 21:45 36.5 C 59 L 16 108/72 97 PG Care Time/CCT Total # of Minutes Spent Total Time Spent with Patient: Total time spent is greater than 50% in coordination of care (as documented) at patient's floor/unit and/or counseling patient:
[2019-05-09] MEDS ORDERED: PERCOCET 5/325MG HOMEPACK PO ONE (08:53)
[2019-05-09 09:56] VITALS: PULSE 53
--- NOTE | 2019-05-13 10:09 | Discharge Summary ---
Date of Service May 13, 2019 Admission HPI Per Admitting Provider 34-year-old female transferred from [facility] for acute appendicitis. She is and had her baby on 22 April. The was overall uncomplicated as was the delivery. This morning she was awake at 530 and noticed some pain in her right lower quadrant. This became more severe and she presented to the emergency department. She denies any associated nausea but did have anorexia. No fevers. No similar episodes in the past. She had a CT scan performed which showed a dilated fluid-filled appendix consistent with appendicitis. She receives most of her medical care here and was , she requested transfer to our facility which accepted. Principal Diagnosis Acute appendicitis Discharge Data Allergies Allergy/AdvReac Type Severity Reaction Status Date / Time No Known Allergies Allergy Verified 04/18/19 19:37 Procedures Performed Operation Date: 05/08/19 11:00 Actual Procedures p Laparoscopic Appendectomy - Johnathan Roy DO, FACS Hospital Course (1) Acute appendicitis with localized peritonitis: 34 y/o female diagnosed at another facility with appendicitis was transferred to [facility] at her request. She was evaluated in the ER and taken to the operating room for laparoscopic appendectomy that evening. She was observed on the surgical floor overnight and in the morning she was tolerating diet and oral analgesics and was stable for discharge home. Total Time Total Time Spent Total Time Spent (In Minutes): 10 Discharge Plan Discharge Items Patient Disposition: Home - Self-Care Reason For Visit: APPENDICITIS Discharge Diagnosis: laparoscopic appendectomy Activity: As commented below Lifting: No more than 10 pounds Bathing: No limitations Driving/Machine Use: Resume 3 days after discharge Non-emergency contact: Surgeon Call non-emergency contact if: you have any medication questions, your pain is not controlled, you have a fever, your temperature is above 101.5 and your wound has increased redness Follow-up/Referrals: Kim Hector CRNP [Primary Care Provider] - Johnathan Roy DO, FACS [Emergency Provider] - (Call to make an appt in 1-2 weeks) Diet: Regular Addtl Attending Provider Instructions: Pending Studies at Discharge: No Stand-Alone Forms: Call Back Authorization, [employer], Smoking Cessation Medications and DC Order Prescriptions: New oxycodone-acetaminophen [Percocet] 5-325 mg tablet 1 - 2 tab PO Q4H PRN (Reason: pain, initial therapy, max 8 daily) Qty: 15 RF: 0 Continued levothyroxine 137 mcg tablet 137 mcg PO DAILY RF: 0 calcium carbonate [Calcium 600] 600 mg calcium (1,500 mg) Tablet 600 mg PO DAILY RF: 0 omega 1-muh-xyw-fish oil [Fish Oil] 1,000 mg (120 mg-180 mg) Capsule 1 cap PO DAILY RF: 0 PNV cmb#95-ferrous fumarate-FA [] 28 mg iron- 800 mcg Tablet 1 tab PO DAILY RF: 0 Discharge Orders: Discharge Order (Routine); Ordered 05/09/19 Ordered By: Chadd Victor Jr Admission Data Admit Date/Time: 05/08/19 18:09 Attending Provider: Johnathan Roy Admit Provider: Johnathan Roy Primary Care Provider: Kim Hector Other Interventions: Discharge Summary Assessment (RN) Last Done: 05/09/19 09:53 DC Date/Time DO NOT enter until pt leaves facility: 05/09/19 10:11
== END 2019-05-09 10:11 | disposition home or self-care (01) ==
LOC: ED 16:07 → OR 16:40 → 3W 16:40

== ENCOUNTER 2021-10-08 11:55 | Inpatient (IN) ==
[2021-10-08] MEDS ORDERED: OXYTOCIN 30 UNITS/500 ML BAG IV PRN ×2 (16:42→17:50)
--- NOTE | 2021-10-08 16:45 | History & Physical Report ---
Date of Service October 08, 2021 Assessment & Plan (1) with 39 completed weeks gestation: (2) Unfavorable cervix in term : (3) History of shoulder dystocia in prior , currently in third trimester: Plan: Patient will be admitted for induction for hx of shoulder dystocia. A third trimester us for efw was not obtained. Patient has been offered a primary c/s again and has declined. Discussed per MFM the risk of recurrence could be as high as 16%, and could potentially be worse. Discussed would not instrument the delivery, would either push out on own or will be repeat c/s. Patient expresses understanding of this. Fetus category one. good placed for cervical ripening and will start low dose pitocin. Admission and Anticipated Discharge Date Admission Date: October 08, 2021 History of Present Illness Chief Complaint: induction Primary Care Provider: ANDREA Foster Patient is a 36yowf who presents to labor and delivery at 39 07 weeks for elective induction of labor secondary to shoulder dystocia in her last delivery. She pushed for well over four hours on and off and had a 2 minute dystocia for a 9#6oz baby that was releived by suprapubic pressure, Vesna and then delivery of the posterior shoulder. Was offered elective c/s but has elected induction at 39 weeks. the current has been uncomplicated. Notes Good fm. no lof/vb or contractions. AMA and had low risk cf DNA. did not have an EFW ultrasound in late . MFM consult reviewed noting that instrumental delivery should not be considered in prolonged second stage. She has an unfavorable cervix. OB Labs: Hemoglobin 12.8 g/dL (11.7-15.5) 08/02/21 Hematocrit 37.8 % (35.0-45.0) 08/02/21 Mean Corpuscular Volume 85.4 fL (80.0-100.0) 03/11/21 Platelet Count 357 Thousand/uL (140-400) 03/11/21 Rubella IgG Antibody 8.87 Index 03/11/21 HIV (1&2) Ab and P24 Ag, 4th Gener NON-REACTIVE (NON-REACTIVE) 03/11/21 Glucose 1 Hour 50 gm Load 103 mg/dL (<135) 08/02/21 Maternal Serum Alpha Fetoprotein 31.6 ng/mL 05/03/21 OB Optional Labs: Chlamydia trachomatis RNA NOT DETECTED (NOT DETECTED) 03/11/21 Neisseria gonorrhoeae RNA NOT DETECTED (NOT DETECTED) 03/11/21 Thyroid Stimulating Hormone (TSH) 0.57 mIU/L 09/13/21 Alpha Fetoprotein Triple Screen SEE NOTE 05/03/21 Labs Reviewed: CF/SMA negative in prior (08/30/18) cf DNA low risk--smp afp neg--akh Blood Type - B positive Antibody Screen - negative Allergies Allergy/AdvReac Type Severity Reaction Status Date / Time No Known Allergies Allergy Verified 10/07/21 13:33 Home Medications Medication Instructions Recorded Confirmed Type prenat.vits,blair,nvd-cobb-efzvm 1 tab PO DAILY 02/26/21 10/07/21 History dapsone 5 % topical gel 1 applic TOPICAL BID #60 g 07/20/21 10/07/21 Rx calcium carbonate 600 mg calcium 1,200 mg PO DAILY tab 09/08/21 10/07/21 History (1,500 mg) tablet (Calcium) levothyroxine 112 mcg tablet 112 mcg PO .COMPLEX 90 Days #104 09/20/21 10/07/21 Rx tab MDD 8 tabs weekly amoxicillin 875 mg tablet 875 mg PO BID #20 tab 09/27/21 10/07/21 Rx Patient History Medical History Elevated alkaline phosphatase level Graves' disease History of migraine headaches History of varicella Hyperthyroidism Surgical History History of elective History of thyroidectomy S/P appendectomy S/P wisdom tooth extraction Family History Mother Depression Dyslipidemia Sister Leukemia Seizures Denies family history of Ovarian cancer Breast cancer Colorectal cancer Social History Smoking Status: Never smoker Second Hand Exposure: No; Hx Alcohol Use: No Hx Substance Use: No Preferred Language: Macedonian Communication Ability: Effective Lime Burner Required: No Beliefs That Will Affect Care: None marital status: Current Living Situation: Spouse Current Living Situation Comment: lives with spouse, child, dog, cat-spouse changing litter current occupational status: employed current occupation: [employer] Other Information That Helps Us Care for You: No Feels Safe at Home: Yes Safety Concerns: Feels Safe At This Time Assistive Devices: None Assistive Devices Comment: invisalign retainers OB History Past Pregnancies Del. Date GA wks Lbr Lgth wt Sex Type del Anes Place Del Prov ? Comment Unknown Aborted-Elective 200604/20/19 41 9lb 6.1oz F Epi dural [facility] Kraft No Shoulder dystocia [employer]PER[employer] History noncontributory. Physical Exam Constitutional: WD/WN, vitals as above Gastrointestinal (Abdomen): soft, gravid, nt Psychiatric: A+Ox3, euthymic affect Genitourinary: cx--1/75/-2/mid/mod toco--none efm--130s wtih mod variability, accels to the 160s, no decels speculum placed and cervix visualized. good threaded through the os and balloon inflated with 35cc sterile water. tolerated well. Code Status & VTE Plan VTE Prophylaxis Plan VTE Prophylaxis will be ordered: No Coding Level of Care Code None Diagnoses with 39 completed weeks gestation Z3A.39 Unfavorable cervix in term O34.40 History of shoulder dystocia in prior , currently in third trimester O09.293 CPT Codes Misx Procedure Codes - 20496 Placement of cervical dilator: 17945 Placement of cervical dilator ([id number])
[2021-10-08 17:03] LABS: Hematocrit (blood only) 37.2 % (37-47); Hemoglobin 12.3 g/dL (12.0-16.0); Mean Corpuscular Hemoglobin 28.8 pg (25-34); Mean Corpuscular Hgb Conc 33.1 g/dL (32-36); Mean Corpuscular Volume 87.1 fL (80-100); Mean Platelet Volume 9.3 fL (7.4-10.4); Platelet Count 311 K/uL (130-400); RDW Coefficient of Variation 14.2 % (11.5-14.5); RDW Standard Deviation 44.7 fL (36.4-46.3); Red Blood Count 4.27 M/uL (4.2-5.4); White Blood Count 10.21 K/uL (4.8-10.8)
[2021-10-08] MEDS: LACTATED RINGER'S 1,000 ML IV PRN (17:19)
[2021-10-08] MEDS ORDERED: BUTORPHANOL TARTRATE 1 MG/ML VIAL IV ONE (21:38)
[2021-10-09] MEDS: LACTATED RINGER'S 1,000 ML IV PRN ×2 (00:58→05:23)
[2021-10-09] MEDS ORDERED: OXYTOCIN 30 UNITS/500 ML BAG IV PRN ×2 (01:21→11:55)
--- NOTE | 2021-10-09 01:21 | Labor Progress Brief Note ---
Date of Service October 09, 2021 Subjective getting uncomfortable Assessment & Plan (1) History of shoulder dystocia in prior , currently in third trimester: (2) with 39 completed weeks gestation: Plan: Will get epidural now, then start increasing pitocin. fetus category one. anticipate nst. Admission and Anticipated Discharge Date Admission Date: October 08, 2021 Physical Exam Physical Exam: gentle pull and good out cx--4/75/-2 toco--q2-3, pit at 6 efm--130s with mod variabiltiy, accels to 150s, no decels Results & Data ([facility]) Vital Signs (Past 12 Hours) Vital Signs Temp Pulse Resp BP Pulse Ox 10/09/21 01:11 77 106/62 10/09/21 01:00 18 10/09/21 00:59 88 99 10/09/21 00:54 75 97 10/09/21 00:49 76 97 10/09/21 00:44 72 96 10/09/21 00:39 72 97 10/09/21 00:34 71 97 10/09/21 00:30 18 10/09/21 00:29 84 98 10/09/21 00:24 75 97 10/09/21 00:19 76 97 10/09/21 00:14 72 97 10/09/21 00:12 72 106/68 10/09/21 00:09 72 96 10/09/21 00:04 79 97 10/09/21 00:00 36.7 C 18 10/08/21 23:59 83 97 10/08/21 23:54 70 96 10/08/21 23:49 71 95 10/08/21 23:44 74 95 10/08/21 23:39 72 95 10/08/21 23:34 76 95 10/08/21 23:30 18 10/08/21 23:29 73 95 10/08/21 23:24 73 95 10/08/21 23:19 72 95 10/08/21 23:14 73 95 10/08/21 23:12 73 108/60 10/08/21 23:11 74 94 10/08/21 23:09 82 97 10/08/21 23:04 76 95 10/08/21 23:00 18 10/08/21 22:59 78 96 10/08/21 22:54 71 95 10/08/21 22:49 73 95 10/08/21 22:44 74 96 10/08/21 22:39 80 98 10/08/21 22:34 84 98 10/08/21 22:26 20 10/08/21 22:12 74 118/68 10/08/21 22:00 18 10/08/21 21:30 18 10/08/21 21:12 75 124/66 10/08/21 21:00 20 10/08/21 20:30 18 10/08/21 20:12 76 117/70 10/08/21 20:05 36.7 C 10/08/21 20:00 18 10/08/21 19:30 18 10/08/21 19:11 76 18 122/58 L 10/08/21 18:48 20 10/08/21 18:30 20 10/08/21 18:24 77 116/65 10/08/21 18:00 20 10/08/21 16:35 36.6 C 20 10/08/21 16:33 18 Coding Level of Care Code None Diagnoses History of shoulder dystocia in prior , currently in third trimester O09.293 with 39 completed weeks gestation Z3A.39
[2021-10-09] MEDS ORDERED: ePHEDrine sulfate 50 MG/ML AMP ONE (01:25)
[2021-10-09] MEDS ORDERED: SODIUM CHLORIDE 0.9% INJ 10 ML VIAL ONE (01:26)
[2021-10-09] MEDS ORDERED: BUPIVACAINE 0.25% 30 ML VIAL ONE (01:26)
[2021-10-09] MEDS ORDERED: fentaNYL citrate 100 MCG/2 ML VIAL ONE (01:26)
[2021-10-09] MEDS ORDERED: fentaNYL 2MCG/ML ROPIVACAINE 1.25MG/ML 100 ML BAG EPI ONE (01:27)
[2021-10-09] MEDS ORDERED: NALBUPHINE HCL INJ 10 MG/ML AMP IV PRN (02:31)
[2021-10-09] MEDS ORDERED: NALOXONE HCL 1 MG in SODIUM CHLORIDE 0.9% 1000ML 1,000 ML IV PRN (02:31)
[2021-10-09] MEDS ORDERED: diphenhydrAMINE 50 MG/ML VIAL IV PRN (02:31)
[2021-10-09] MEDS ORDERED: fentaNYL 2MCG/ML ROPIVACAINE 1.25MG/ML 100 ML BAG EPI PRN (02:31)
[2021-10-09] MEDS ORDERED: NALOXONE HCL 0.4 MG/1 ML VIAL/CARP IV PRN (02:31)
[2021-10-09] MEDS ORDERED: ONDANSETRON INJ 2 MG/ML 2 ML VIAL IV PRN (02:31)
[2021-10-09] MEDS ORDERED: ePHEDrine sulfate 50 MG/ML AMP IV PRN (02:31)
[2021-10-09] MEDS ORDERED: PROMETHAZINE HCL 6.25 MG in SODIUM CHLORIDE 0.9% 50 ML IV PRN (02:31)
--- NOTE | 2021-10-09 02:31 | Anesthesiology Consultation ---
Date of Service October 09, 2021 Assessment & Plan Chart Review Chart Review: Patient NOT seen in Pre Admission Testing and Acceptable Risk for Labor Epidural Consults Requested none ASA ASA2 Proposed Anesthesia Anesthesia Type: Labor Epidural Risk / Benefits Reviewed With: PT / POA / Parent / Guardian, Accepts Plan and Informed Consent Obtained History Height/Weight Height: 5 ft 5 in Weight: 91.172 kg Allergies Allergy/AdvReac Type Severity Reaction Status Date / Time No Known Allergies Allergy Verified 10/07/21 13:33 Medications Home Medications Medication Instructions Recorded Confirmed Last Taken prenat.vits,blair,aps-umhp-bmpop 1 tab PO DAILY 02/26/21 10/08/21 1 Day Ago ~10/07/21 dapsone 5 % topical gel 1 applic TOPICAL BID #60 g 07/20/21 10/08/21 10/08/21 calcium carbonate 600 mg calcium 1,200 mg PO DAILY tab 09/08/21 10/08/21 10/01/21 (1,500 mg) tablet (Calcium) levothyroxine 112 mcg tablet 112 mcg PO .COMPLEX 90 Days #104 09/20/21 10/08/21 10/08/21 09:00 tab MDD 8 tabs weekly Active Medications Generic Name Dose Route Start Last Admin Trade Name Freq PRN Reason Stop Dose Admin Lactated Ringer's 1,000 mls @ 125 mls/hr 10/08/21 16:42 10/09/21 01:50 Lr IV 10/10/21 16:41 125 mls/hr .Q8H PRN Infusion L&D Protocol Protocol Past Medical History Medical History Elevated alkaline phosphatase level Graves' disease History of migraine headaches History of varicella Hyperthyroidism Exercise / Class Metabolic Activity II 4-5 Yardwork/Stairs/Walk up hill Past Family History Family History Mother Depression Dyslipidemia Sister Leukemia Seizures Denies family history of Ovarian cancer Breast cancer Colorectal cancer Past Surgical History Surgical History History of elective History of thyroidectomy S/P appendectomy S/P wisdom tooth extraction Past Anesthesia History No Hx of Anesthesia Complications and No Family Hx of Anesthesia Complications History of PONV No Hx of PONV and No Hx of Motion Sickness Social History Smoking Status: Never smoker Hx Alcohol Use: No Hx Substance Use: No substance use type: does not use Physical Exam Vital Signs Last Vital Signs Temp 36.4 C L 10/09/21 02:03 Pulse 87 10/09/21 02:27 Resp 18 10/09/21 02:08 BP 116/63 10/09/21 02:27 Pulse Ox 100 10/09/21 02:27 ENMT Mouth: no dentition abnormality Thyromental Distance: > or= 3.5 Finger Breadths Mallampati Class: II Neck normal visual inspection Respiratory normal respiratory effort Auscultation: lungs clear to auscultation bilaterally Cardiovascular Rate/Rhythm: regular rate and regular rhythm Psychiatric Orientation: alert Testing Laboratory Results 10/08/21 16:52
--- NOTE | 2021-10-09 07:44 | Labor Progress Brief Note ---
Date of Service October 09, 2021 Subjective comfortable Assessment & Plan (1) History of shoulder dystocia in prior , currently in third trimester: (2) with 39 completed weeks gestation: Plan: continue current plan. fetus category one. Admission and Anticipated Discharge Date Admission Date: October 08, 2021 Physical Exam Physical Exam: cx--5+/80/-2 arom--clear toco--q2-4, pit at 18 efm--140s with mod variability, accels to 160s, no decels Results & Data ([facility]) Vital Signs (Past 12 Hours) Vital Signs Temp Pulse Resp BP Pulse Ox 10/09/21 07:37 79 97 10/09/21 07:32 84 99 10/09/21 07:28 67 92/53 L 10/09/21 07:27 70 98 10/09/21 07:22 70 99 10/09/21 07:17 74 99 10/09/21 07:13 73 104/57 L 10/09/21 07:12 71 98 10/09/21 07:07 75 98 10/09/21 07:02 74 98 10/09/21 07:00 36.7 C 91 H 20 90 10/09/21 06:57 73 96/59 L 98 10/09/21 06:52 70 97 10/09/21 06:47 69 98 10/09/21 06:42 66 97/57 L 98 10/09/21 06:37 71 97 10/09/21 06:32 67 99 10/09/21 06:30 16 10/09/21 06:28 68 97/56 L 10/09/21 06:27 68 98 10/09/21 06:22 70 99 10/09/21 06:17 69 98 10/09/21 06:12 68 100/62 100 10/09/21 06:07 68 98 10/09/21 06:02 71 100 10/09/21 06:00 18 10/09/21 05:57 70 98/61 L 99 10/09/21 05:52 71 99 10/09/21 05:47 71 100 10/09/21 05:42 69 99/62 L 100 10/09/21 05:37 71 100 10/09/21 05:32 69 100 10/09/21 05:30 18 10/09/21 05:28 71 105/62 10/09/21 05:27 76 100 10/09/21 05:25 36.5 C 10/09/21 05:22 80 100 10/09/21 05:17 76 100 10/09/21 05:13 71 107/57 L 10/09/21 05:12 90 100 10/09/21 05:07 87 99 10/09/21 05:02 84 100 10/09/21 05:00 18 10/09/21 04:59 74 100/58 L 10/09/21 04:57 86 100 10/09/21 04:52 74 99 10/09/21 04:47 73 99 10/09/21 04:42 72 102/59 L 99 10/09/21 04:37 78 99 10/09/21 04:32 72 98 10/09/21 04:30 16 10/09/21 04:27 76 99/58 L 99 10/09/21 04:22 70 98 10/09/21 04:17 71 99 10/09/21 04:12 71 103/58 L 98 10/09/21 04:07 75 98 10/09/21 04:02 74 98 10/09/21 03:58 70 97/55 L 10/09/21 03:57 70 98 10/09/21 03:52 71 98 10/09/21 03:47 82 98 10/09/21 03:43 72 96/51 L 10/09/21 03:42 73 98 10/09/21 03:37 72 99 10/09/21 03:32 74 98 10/09/21 03:27 75 99/56 L 99 10/09/21 03:22 78 99 10/09/21 03:17 74 99 10/09/21 03:13 74 101/59 L 10/09/21 03:12 74 100 10/09/21 03:07 79 100 10/09/21 03:02 93 H 100 10/09/21 03:00 18 10/09/21 02:57 75 106/57 L 99 10/09/21 02:52 76 99 10/09/21 02:47 79 100 10/09/21 02:42 81 109/59 L 100 10/09/21 02:37 79 99 10/09/21 02:32 84 100 10/09/21 02:27 87 116/63 100 10/09/21 02:25 85 116/64 10/09/21 02:24 88 120/69 10/09/21 02:22 87 100 10/09/21 02:21 85 123/69 10/09/21 02:18 82 131/80 10/09/21 02:17 86 100 10/09/21 02:15 86 127/79 10/09/21 02:12 93 H 100 10/09/21 02:08 101 H 18 93 10/09/21 02:07 88 100 10/09/21 02:03 36.4 C L 82 20 118/75 10/09/21 02:02 87 100 10/09/21 01:45 18 10/09/21 01:30 18 10/09/21 01:11 77 106/62 10/09/21 01:00 18 10/09/21 00:59 88 99 10/09/21 00:54 75 97 10/09/21 00:49 76 97 10/09/21 00:44 72 96 10/09/21 00:39 72 97 10/09/21 00:34 71 97 10/09/21 00:30 18 10/09/21 00:29 84 98 10/09/21 00:24 75 97 10/09/21 00:19 76 97 10/09/21 00:14 72 97 10/09/21 00:12 72 106/68 10/09/21 00:09 72 96 10/09/21 00:04 79 97 10/09/21 00:00 36.7 C 18 10/08/21 23:59 83 97 10/08/21 23:54 70 96 10/08/21 23:49 71 95 10/08/21 23:44 74 95 10/08/21 23:39 72 95 10/08/21 23:34 76 95 10/08/21 23:30 18 10/08/21 23:29 73 95 10/08/21 23:24 73 95 10/08/21 23:19 72 95 10/08/21 23:14 73 95 10/08/21 23:12 73 108/60 10/08/21 23:11 74 94 10/08/21 23:09 82 97 10/08/21 23:04 76 95 10/08/21 23:00 18 10/08/21 22:59 78 96 10/08/21 22:54 71 95 10/08/21 22:49 73 95 10/08/21 22:44 74 96 10/08/21 22:39 80 98 10/08/21 22:34 84 98 10/08/21 22:26 20 10/08/21 22:12 74 118/68 10/08/21 22:00 18 10/08/21 21:30 18 10/08/21 21:12 75 124/66 10/08/21 21:00 20 10/08/21 20:30 18 10/08/21 20:12 76 117/70 10/08/21 20:05 36.7 C 10/08/21 20:00 18 Coding Level of Care Code None Diagnoses History of shoulder dystocia in prior , currently in third trimester O09.293 with 39 completed weeks gestation Z3A.39
[2021-10-09] MEDS ORDERED: bisacodyL 10 MG SUPP PR PRN (11:55)
[2021-10-09] MEDS ORDERED: BENZOCAINE 20% AER SPR 82.5 GM CAN EXT PRN (11:55)
[2021-10-09] MEDS ORDERED: DIPHTHERIA/TETANUS/PERTUSSIS 0.5 ML SYR/VIAL IM ONE (11:55)
[2021-10-09] MEDS ORDERED: ACETAMINOPHEN 325 MG TAB PO PRN (11:55)
[2021-10-09] MEDS ORDERED: HYDROCORTISONE ACETATE 25 MG SUPP PR PRN (11:55)
--- NOTE | 2021-10-09 13:22 | Anesthesiology Progress Note ---
Date of Service October 09, 2021 Anesthesia Post Procedure Vital Signs Vital Signs: Temp Pulse Resp BP Pulse Ox 10/09/21 13:19 108 H 100 10/09/21 13:15 18 10/09/21 13:14 98 H 98 10/09/21 13:12 81 112/66 10/09/21 13:09 83 100 10/09/21 13:04 85 100 10/09/21 12:59 83 99 10/09/21 12:57 90 120/63 10/09/21 12:54 95 H 97 10/09/21 12:49 97 H 98 10/09/21 12:45 16 10/09/21 12:44 88 96 10/09/21 12:43 88 121/56 L 10/09/21 12:39 86 97 10/09/21 12:38 20 10/09/21 12:34 90 96 10/09/21 12:30 20 10/09/21 12:29 98 H 97 10/09/21 12:24 86 100 10/09/21 12:19 81 99 10/09/21 12:15 82 98 10/09/21 12:14 82 98 10/09/21 12:12 88 120/57 L 10/09/21 12:09 89 98 10/09/21 12:04 93 H 96 10/09/21 12:00 18 10/09/21 11:59 87 97 10/09/21 11:58 98 H 125/61 10/09/21 11:54 100 H 97 10/09/21 11:50 94 H 123/57 L 10/09/21 11:47 95 H 98 10/09/21 11:45 36.6 C 20 10/09/21 11:43 90 126/65 10/09/21 11:42 94 H 97 10/09/21 11:37 102 H 76 L 10/09/21 11:32 89 100 10/09/21 11:28 96 H 147/61 H 10/09/21 11:27 88 100 10/09/21 11:22 92 H 100 10/09/21 11:17 81 98 10/09/21 11:14 71 114/69 10/09/21 11:12 75 97 10/09/21 11:07 80 97 10/09/21 11:02 81 96 10/09/21 11:00 18 10/09/21 10:59 76 113/60 10/09/21 10:57 77 95 10/09/21 10:52 88 97 10/09/21 10:47 88 97 10/09/21 10:43 98 H 100/52 L 10/09/21 10:42 80 97 10/09/21 10:37 75 95 10/09/21 10:32 79 95 10/09/21 10:30 18 10/09/21 10:29 75 91/53 L 10/09/21 10:27 73 96 10/09/21 10:24 77 94 10/09/21 10:22 77 95 10/09/21 10:17 85 96 10/09/21 10:13 76 91/55 L 10/09/21 10:12 77 95 10/09/21 10:07 75 96 10/09/21 10:02 75 95 10/09/21 10:00 18 10/09/21 09:57 73 93/51 L 96 10/09/21 09:52 74 95 10/09/21 09:47 75 96 10/09/21 09:42 79 92/53 L 97 10/09/21 09:37 79 97 10/09/21 09:32 82 97 10/09/21 09:30 18 10/09/21 09:29 77 96/52 L 10/09/21 09:27 79 97 10/09/21 09:22 80 98 10/09/21 09:19 89 94 10/09/21 09:17 68 96 10/09/21 09:12 68 101/57 L 97 10/09/21 09:07 72 96 10/09/21 09:02 70 97 10/09/21 09:00 18 10/09/21 08:59 70 104/58 L 10/09/21 08:57 71 97 10/09/21 08:52 75 97 10/09/21 08:47 71 98 10/09/21 08:43 69 107/64 10/09/21 08:42 71 98 10/09/21 08:37 81 99 10/09/21 08:32 79 99 10/09/21 08:30 20 10/09/21 08:29 78 110/62 10/09/21 08:27 81 99 10/09/21 08:22 82 100 10/09/21 08:17 81 98 10/09/21 08:14 87 100/51 L 10/09/21 08:12 86 98 10/09/21 08:07 83 98 10/09/21 08:02 83 100 10/09/21 08:00 18 10/09/21 07:59 83 98/52 L 10/09/21 07:57 82 100 10/09/21 07:52 88 100 10/09/21 07:47 87 99 10/09/21 07:43 100 H 117/58 L 10/09/21 07:42 85 99 10/09/21 07:37 79 97 10/09/21 07:32 84 99 10/09/21 07:30 18 10/09/21 07:28 67 92/53 L 10/09/21 07:27 70 98 10/09/21 07:22 70 99 10/09/21 07:17 74 99 10/09/21 07:13 73 104/57 L 10/09/21 07:12 71 98 10/09/21 07:07 75 98 10/09/21 07:02 74 98 10/09/21 07:00 36.7 C 91 H 20 90 10/09/21 06:57 73 96/59 L 98 10/09/21 06:52 70 97 10/09/21 06:47 69 98 10/09/21 06:42 66 97/57 L 98 10/09/21 06:37 71 97 10/09/21 06:32 67 99 10/09/21 06:30 16 10/09/21 06:28 68 97/56 L 10/09/21 06:27 68 98 10/09/21 06:22 70 99 10/09/21 06:17 69 98 10/09/21 06:12 68 100/62 100 10/09/21 06:07 68 98 10/09/21 06:02 71 100 10/09/21 06:00 18 10/09/21 05:57 70 98/61 L 99 10/09/21 05:52 71 99 10/09/21 05:47 71 100 10/09/21 05:42 69 99/62 L 100 10/09/21 05:37 71 100 10/09/21 05:32 69 100 10/09/21 05:30 18 10/09/21 05:28 71 105/62 10/09/21 05:27 76 100 10/09/21 05:25 36.5 C 10/09/21 05:22 80 100 10/09/21 05:17 76 100 10/09/21 05:13 71 107/57 L 10/09/21 05:12 90 100 10/09/21 05:07 87 99 10/09/21 05:02 84 100 10/09/21 05:00 18 10/09/21 04:59 74 100/58 L 10/09/21 04:57 86 100 10/09/21 04:52 74 99 10/09/21 04:47 73 99 10/09/21 04:42 72 102/59 L 99 10/09/21 04:37 78 99 10/09/21 04:32 72 98 10/09/21 04:30 16 10/09/21 04:27 76 99/58 L 99 10/09/21 04:22 70 98 10/09/21 04:17 71 99 10/09/21 04:12 71 103/58 L 98 10/09/21 04:07 75 98 10/09/21 04:02 74 98 10/09/21 03:58 70 97/55 L 10/09/21 03:57 70 98 10/09/21 03:52 71 98 10/09/21 03:47 82 98 10/09/21 03:43 72 96/51 L 10/09/21 03:42 73 98 10/09/21 03:37 72 99 10/09/21 03:32 74 98 10/09/21 03:27 75 99/56 L 99 10/09/21 03:22 78 99 10/09/21 03:17 74 99 10/09/21 03:13 74 101/59 L 10/09/21 03:12 74 100 10/09/21 03:07 79 100 10/09/21 03:02 93 H 100 10/09/21 03:00 18 10/09/21 02:57 75 106/57 L 99 10/09/21 02:52 76 99 10/09/21 02:47 79 100 10/09/21 02:42 81 109/59 L 100 10/09/21 02:37 79 99 10/09/21 02:32 84 100 10/09/21 02:27 87 116/63 100 10/09/21 02:25 85 116/64 10/09/21 02:24 88 120/69 10/09/21 02:22 87 100 10/09/21 02:21 85 123/69 10/09/21 02:18 82 131/80 10/09/21 02:17 86 100 10/09/21 02:15 86 127/79 10/09/21 02:12 93 H 100 10/09/21 02:08 101 H 18 93 10/09/21 02:07 88 100 10/09/21 02:03 36.4 C L 82 20 118/75 10/09/21 02:02 87 100 10/09/21 01:45 18 10/09/21 01:30 18 10/09/21 01:11 77 106/62 10/09/21 01:00 18 10/09/21 00:59 88 99 10/09/21 00:54 75 97 10/09/21 00:49 76 97 10/09/21 00:44 72 96 10/09/21 00:39 72 97 10/09/21 00:34 71 97 10/09/21 00:30 18 10/09/21 00:29 84 98 10/09/21 00:24 75 97 10/09/21 00:19 76 97 10/09/21 00:14 72 97 10/09/21 00:12 72 106/68 10/09/21 00:09 72 96 10/09/21 00:04 79 97 10/09/21 00:00 36.7 C 18 10/08/21 23:59 83 97 10/08/21 23:54 70 96 10/08/21 23:49 71 95 10/08/21 23:44 74 95 10/08/21 23:39 72 95 10/08/21 23:34 76 95 10/08/21 23:30 18 10/08/21 23:29 73 95 10/08/21 23:24 73 95 10/08/21 23:19 72 95 10/08/21 23:14 73 95 10/08/21 23:12 73 108/60 10/08/21 23:11 74 94 10/08/21 23:09 82 97 10/08/21 23:04 76 95 10/08/21 23:00 18 10/08/21 22:59 78 96 10/08/21 22:54 71 95 10/08/21 22:49 73 95 10/08/21 22:44 74 96 10/08/21 22:39 80 98 10/08/21 22:34 84 98 10/08/21 22:26 20 10/08/21 22:12 74 118/68 10/08/21 22:00 18 10/08/21 21:30 18 10/08/21 21:12 75 124/66 10/08/21 21:00 20 10/08/21 20:30 18 10/08/21 20:12 76 117/70 10/08/21 20:05 36.7 C 10/08/21 20:00 18 10/08/21 19:30 18 10/08/21 19:11 76 18 122/58 L 10/08/21 18:48 20 10/08/21 18:30 20 10/08/21 18:24 77 116/65 10/08/21 18:00 20 10/08/21 16:35 36.6 C 20 10/08/21 16:33 18 Transfer of Care Handoff Completed per policy Notes Mental Status: alert / awake / arousable and participated in evaluation Patient Amnestic to Procedure: Yes Nausea / Vomiting: adequately controlled Pain: adequately controlled Airway Patency, RR, SpO2: stable & adequate BP & HR: stable & adequate Hydration State: stable & adequate Anesthetic Complications: no major complications apparent and Pt Satisfied with anesthetic care
[2021-10-09] MEDS: IBUPROFEN 600 MG TAB PO PRN ×2 (15:34→20:53)
--- NOTE | 2021-10-09 16:41 | Delivery Summary ---
DATE OF SERVICE: 10/09/2021. PROCEDURE: Normal spontaneous vaginal delivery. SURGEON: Dilshad Nino MD. PREOPERATIVE DIAGNOSES: 1. Single intrauterine at 39 weeks 1 day gestational age. 2. Prior shoulder dystocia, presenting for elective induction of labor. 3. Hypothyroidism. 4. Advanced maternal age. POSTOPERATIVE DIAGNOSES: 1. Single intrauterine at 39 weeks 1 day gestational age. 2. Prior shoulder dystocia, presenting for elective induction of labor. 3. Hypothyroidism. 4. Advanced maternal age. 5. Status post procedure. ESTIMATED BLOOD LOSS: 200 mL. DRAINS: None. FLUIDS: Continuous lactated Ringer. URINE OUTPUT: Not measured. COMPLICATIONS: None. FINDINGS: Viable female with weight and Apgars pending. INDICATIONS: The patient is a 36-year-old G3, P1, admitted at 39 weeks 1 day gestational age for mahin ctive induction of labor secondary to a prior shoulder dystocia affecting delivery. At initial evalu ation, the patient was noted to have an unfavorable cervix and a cervical ripening Rivera was placed w ith oxytocin. The Rivera later came out, and the patient was titrated up on oxytocin and underwent ar tificial rupture of membranes on around 7:40 a.m. on day of delivery. The patient progressed in labo r to complete-complete, +2 station, at which time she felt a strong urge to push and pushed over 3 co ntractions to achieve delivery. DESCRIPTION OF PROCEDURE: The patient progressed to 10 cm dilated, 100% effaced, positive 2 station, pushed over intact perineum with epidural anesthesia and delivered a viable female infant with weigh t and Apgars as noted above. Head of the delivered in DAVID position, restituted right transve rse. No nuchal cord was noted. Body and shoulders quickly followed. was noted to be vigoro us soon after delivery and 1 minute delayed cord clamping was initiated. The cord was then double cl amped and cut. remained on maternal abdomen. Cord blood was obtained. Attention was then t urned to delivery of the placenta, which was delivered intact, 3-vessel cord, gentle cord traction. On inspection of the perineum, vagina, and cervix, there was noted to be no lacerations. Sponge and instrument counts were correct at the completion of the case. Both mother and stable in the immediate post-delivery. Job ID: [id number]
[2021-10-09] MEDS: DOCUSATE SODIUM 100 MG CAP PO SCH (20:53)
[2021-10-10] MEDS: DOCUSATE SODIUM 100 MG CAP PO SCH (07:25)
[2021-10-10] MEDS: IBUPROFEN 600 MG TAB PO PRN (07:25)
[2021-10-10] MEDS ORDERED: FERROUS SULFATE 325 MG TAB PO SCH (08:00)
[2021-10-10] MEDS ORDERED: PRENATAL VITAMIN 1 TAB PO SCH (08:00)
--- NOTE | 2021-10-10 09:01 | Obstetrical Progress Note ---
Date of Service October 10, 2021 Assessment & Plan (1) Encounter for care and examination after delivery: day 1 s/p . Doing well. Stable for discharge Subjective Ambulation: ambulating normally Voiding: no voiding problems Passing Gas:: Yes Diet Tolerance:: regular diet Lochia:: Moderate Feeding Type:: breast feeding Physical Exam Constitutional WD/WN, vitals as above Respiratory normal respiratory effort; no respiratory distress and no labored breathing Gastrointestinal (Abdomen) Inspection/Auscultation: abdomen normal to inspection; abdomen not distended Percussion/Palpation: abdomen soft; abdomen nontender, no guarding and abdomen not rigid Genitourinary OB Exam Abdomen: + fundal height Fundus: + firm and + relation to umbilicus (Below); not tender or not boggy Results & Data ([facility]) Vital Signs (Past 12 Hours) Vital Signs Temp Pulse Pulse Resp BP Pulse Ox 10/10/21 07:25 36.5 C 69 20 100/66 97 10/10/21 03:55 36.8 C 66 18 104/67 10/09/21 23:55 36.6 C 67 18 106/65
[2021-10-10] MEDS ORDERED: bisacodyL 5 MG TABEC PO SCH (20:00)
== END 2021-10-10 13:51 | disposition home or self-care (01) | DRG 807 ==
LOC: 4S1 16:32 → 4E2 10-09 14:56